=== PATIENT | male | born 1975 | race Caucasian/White ===

== ENCOUNTER → 2016-09-13 | Outpatient (CLI) | payer BC ==
[~2016-09-13] VITALS: Ht 185.4 cm; Wt 106.6 kg
[~2016-09-13] MED LIST: ADVIL100 M2 PO; ADVIL200 M3 PO; APAP500 PO; ASPIRIN325 PO; BACLOFEN 10MG T10 M1 PO; BUPRENORPHIN-N1 EACH SL; BUPRENORPHINE HC2 MG SL; BUTRANS1 EAC1 SUBQ; BUTRANS1 EAC1 TD; CARISOPRODOL 3350 MG PO; CYMBALTA60 MG PO; DICLOFENAC SOD50 MG PO; FENTANYL PA12 MCG/HR TP; FENTANYL PA25 MCG/HR TP; FLEXERIL; GLUCOSAMINE CH PO; GRALISE600 MG PO; HYDROCODON-ACE1 EAC7; HYDROCODON-ACE1 EAC7 PO; HYDROCODON-ACE1 EAC8 PO; HYDROCODONE-AP1 EA11 PO; HYDROCODONE-AP1 EAC6 PO; IBUPROFEN 200200 M1 PO; LIORESAL 10 MG10 MG PO; MEDROLDOSEPACK PO; MELOXICAM7.5 MG PO; NABUMETONE 500500 M1 PO; NAPROSYN500 MG PO; NEURONTIN600 MG PO; NORTRIPTYLINE H25 M3 PO; NORTRIPTYLINE H50 MG PO; NUCYNTA100 MG PO; NUCYNTA75 MG PO; OXCARBAZEPINE150 MG PO; OXYCODONE HCL 55 MG PO; OXYCONTIN10 M1 PO; PAMELOR25 MG PO; RELAFEN500 MG PO; ROBAXIN 750 MG750 M1; ROXICODONE5 M1 PO; ROXICODONE5 M2 PO; ROXICODONE5 MG PO; SUBOXONE 4 MG-1 EACH SL; TRAMADOL 50 MG50 MG PO
--- NOTE | ~2016-09-13 | HPC ---
[facility] [place] [address] PAIN MANAGEMENT CONSULTATION Name: DIAMANTE MAYER Room #: REG Marii Ivey.#: [id number] Admission: 09/13/16 Attend Phys: Kimani Britt DO Discharge: Date of : 75 Report #: [id number] THIS REPORT FOR: //name// CC: Adan Villela MD FAM physician/PCP Kimani Britt DATE OF SERVICE: 09/13/2016 REFERRING PHYSICIAN: Adan Villela MD. CHIEF COMPLAINT: Low back pain, lower extremity pain and paresthesias. HISTORY OF PRESENT ILLNESS: As you know, the patient is a very pleasant 41-year-old male, returning in followup visit indicating the changes to buprenorphine oral versus patch has been significant improvement in pain. The patient is able to sit for longer periods of time, standing for longer periods of time, and now is actively involved in a physical therapy program. He is excited about the effects of the medication, wishing to continue the medication. He denied any side effects of somnolence, decrease in mental acuity, disorientation, and confusion. He has requested refills for the next 3 months. ALLERGIES: No known drug allergies. CURRENT MEDICATIONS: Suboxone 4/1 mg 1 film twice a day. SOCIAL HISTORY: The patient continues to smoke, but he is trying to discontinue. He denies IV or illicit drug use. Denies any chronic alcohol abuse. He is working, not receiving workmen's compensation, unaccompanied today. PHYSICAL EXAMINATION: GENERAL: Well developed, well nourished, and well hydrated, 41-year-old male, appearing his stated age, placing pain score at no greater than 3/10. HEENT: Normocephalic and atraumatic. Pupils are equal, round, and reactive to light. Extraocular muscles are intact. Sclerae are nonicteric without injection. NEUROLOGIC: Cranial nerves 2-12 are grossly intact. Speech is fluent. The patient deemed an excellent historian. EXTREMITIES: Show no clubbing, no cyanosis, no edema. MUSCULOSKELETAL: Lower extremity strength remains equal and symmetrical at 5/5. Muscle bulk and tone equal and symmetrical, when comparing left lower extremity to right. Seated straight leg raising negative. Supine straight leg raising positive. Denita's test negative. Modified Gaenslen's is positive for axial low back pain. Lumbar provocation testing including extension, rotation, and lateral flexion, all intensify axial back pain with spasming of the musculature [address] [address] PAIN MANAGEMENT CONSULTATION Name: DIAMANTE MAYER Room #: REG CLI René#: [id number] Admission: 09/13/16 Attend Phys: Kimani Britt DO Discharge: Date of : 75 Report #: [id number] on the left. ASSESSMENT: 1. Symptomatic lumbar radiculopathy. 2. Displacement of lumbar intervertebral disk with radiculopathy. 3. Lumbosacral spondylosis with radiculopathy. 4. Failed lumbar spine surgery. 5. Chronic intractable pain. PLAN: 1. The patient returns today in followup visit indicating good benefit with the medication provided today for pain control. He is taking 4 mg of buprenorphine twice a day with good efficacy. He is extremely pleased with response to medication, wishing to continue the therapy. The patient and I did discuss the medication in its entirety, its appropriate use and how to change some of his exercise programs to maximize pain control. He is responsive to all suggestions. 2. The patient will continue physical therapy. We do recommend kinesiology class in his area that will help alleviate some of the muscle spasming he has been experiencing. He has plans to join kinesiology class starting next week. 3. The patient was provided a prescription of Suboxone 4 mg/1 mg dose, one piece of film twice a day, given #60 with releases of today, 4 weeks from today, 8 weeks from today, 3 months' worth of medication. 4. The patient to return to our clinic in approximately 3 months or earlier if changes need to be made to medications or adjustments need to be addressed. <ELECTRONICALLY SIGNED> By: Kimani Britt DO 09/14/16 0743 [id number] Kimani Britt DO /nt
[2016-09-13 08:02] VITALS: BP 145/72
== END | disposition home or self-care (01) ==
LOC: PAIN 07:03
DX: M51.16 Intervertebral disc disorders with radiculopathy, lumbar region (principal); M47.27 Other spondylosis with radiculopathy, lumbosacral region; G89.29 Other chronic pain; M96.1 Postlaminectomy syndrome, not elsewhere classified; F17.200 Nicotine dependence, unspecified, uncomplicated

== ENCOUNTER → 2016-11-29 | Outpatient (CLI) | payer BC ==
[~2016-11-29] VITALS: Ht 185.4 cm; Wt 103.0 kg
--- NOTE | ~2016-11-29 | HPC ---
[facility] [address] [place] [address] PAIN MANAGEMENT CONSULTATION Name: DIAMANTE MAYER Room #: REG DENYS Ivey.#: [id number] Admission: 11/29/16 Attend Phys: Kimani Britt DO Discharge: Date of : 75 Report #: [id number] THIS REPORT FOR: //name// CC: Adan Villela MD [facility] physician/PCP Kimani Britt DATE OF SERVICE: 11/29/2016 DATE OF SERVICE: 11/29/2016 CHIEF COMPLAINT: Low back pain, lower extremity pain and paresthesias. HISTORY OF PRESENT ILLNESS: As you know, the patient is a very pleasant 41-year-old male, who returns in followup visit stating a pain score 4/10. States his pain is numbness, sharp and aching in sensation, exacerbated with standing, changes in weather, sitting, walking, driving, improves with medication, lying down, hot baths. He returns today in followup visit stating that his medications are working quite beneficially. He is reporting that the buprenorphine "has given his life back." He feels this medication has been beneficial. He has reported this with the Butrans patch in the past and now is reporting it with the oral buprenorphine. He is very pleased with his response to buprenorphine and coverage apparently is now being provided, so he can maintain this therapy. He returns today requesting refill on medications. He is denying any side effects to the therapy. He has had no new injury or new trauma that may have led to progression of pain. ALLERGIES: No known drug allergies. CURRENT MEDICATIONS: Soma 350 mg p.r.n., aspirin 325 mg per day, buprenorphine 2 mg dose 1 tab p.o. b.i.d. p.r.n. pain. SOCIAL HISTORY: The patient continues to smoke, but is trying to discontinue. Denies IV or illicit drug use. Denies any chronic alcohol use. He is working, not receiving workmen's compensation, unaccompanied today. IMAGING: No new imaging available. PHYSICAL EXAMINATION: VITAL SIGNS: Blood pressure 130/79, pulse 87, respiratory rate 16, unlabored. The patient 98% on room air, height 6 feet 1 inches tall, weight 227 pounds, BMI calculated at 30. GENERAL: Well-developed, well-nourished, well-hydrated 41-year-old male appearing stated age. He is placing current pain score 4/10. HEENT: Normocephalic, atraumatic. Pupils equal, round, reactive to light. Extraocular muscles are intact. Sclerae nonicteric, without injection. No [address] [address] PAIN MANAGEMENT CONSULTATION Name: DIAMANTE MAYER Room #: REG [facility]#: [id number] Admission: 11/29/16 Attend Phys: Kimani Britt DO Discharge: Date of : 75 Report #: [id number] petechiae. Mucous membranes appear moist. EXTREMITIES: Show no clubbing, no cyanosis, no edema. MUSCULOSKELETAL: Lower extremity strength symmetrical 5/5. Muscle bulk and tone equal and symmetrical in lower extremities. Seated straight leg raising negative. Supine straight leg raising positive. ASSESSMENT: 1. Symptomatic lumbar radiculopathy. 2. Displacement of lumbar intervertebral disk with radiculopathy. 3. Lumbosacral spondylosis with radiculopathy. 4. Failed lumbar spine surgery. 5. Chronic intractable pain. PLAN: 1. The patient returns today in followup visit for continuation of medication therapy. As indicated in the HPI, patient is doing very well with medications. In fact, he thinks buprenorphine has "given his life back." The patient is denying any side effects of medication. Feels medications are working beneficially. Apparently coverage is now being offered through his third green party payer and he is able to take this medication consistently. He has done very well with buprenorphine in the past. He was started on Butrans patch which provided significant improvement, but unfortunately coverage was lacking. They are now covering his buprenorphine tablets and he feels these are working well and wishes to continue therapy. 2. The patient was provided a prescription of buprenorphine 2 mg dose 1 tab p.o. b.i.d., given #60 tablets with refills of today, 4 weeks from today, 8 weeks from today, 3 months' worth of medication. 3. We will see the patient back in followup visit in 3 months for medication management. I am pleased to see he is doing well. We will see him back if necessary for injection therapies, otherwise, 3 months for medications treatment. <ELECTRONICALLY SIGNED> By: Kimani Britt DO 12/06/16 1602 0744 [id number] Kimani Britt DO /nt
[2016-11-29 08:16] VITALS: BP 130/79
== END | disposition home or self-care (01) ==
LOC: PAIN 06:54
DX: M54.16 Radiculopathy, lumbar region (principal); M51.26 Other intervertebral disc displacement, lumbar region; M47.817 Spondylosis without myelopathy or radiculopathy, lumbosacral region; G89.29 Other chronic pain

== ENCOUNTER → 2017-03-01 | Outpatient (CLI) | payer BC ==
[~2017-03-01] VITALS: Ht 185.4 cm; Wt 104.8 kg
[2017-03-01 09:51] VITALS: BP 132/78
== END ==
LOC: PAIN 07:05
DX: M51.16 Intervertebral disc disorders with radiculopathy, lumbar region (principal); M54.5 Low back pain; Z79.899 Other long term (current) drug therapy

== ENCOUNTER → 2017-06-06 | Outpatient (CLI) | payer BC ==
[~2017-06-06] VITALS: Ht 185.4 cm; Wt 106.3 kg
--- NOTE | ~2017-06-06 | HPC ---
[facility] [address] [place] [address] PAIN MANAGEMENT CONSULTATION Name: DIAMANTE MAYER Room #: REG DENYS Marija.#: [id number] Admission: 06/06/17 Attend Phys: Kimani Britt DO Discharge: Date of : 75 Report #: [id number] THIS REPORT FOR: //name// CC: Adan Villela MD [facility] physician/PCP Kimani Britt DATE OF SERVICE: 06/06/2017 REFERRING PHYSICIAN: Adan Villela M.D. CHIEF COMPLAINT: Low back pain, lower extremity pain and paresthesias. HISTORY OF PRESENT ILLNESS: As you know, the patient is a very pleasant 42-year-old male returning in followup visit requesting refill on medications. He is placing pain score 4/10, states pain is exacerbated with standing, weather changes, sitting, walking, driving, in certain activities, improves with medications, lying down, hot baths. The patient states that the medications as presently provided give the patient good analgesic benefit. He states he has many more good days than he does have bad. He has been having increasing pain level of late as he has been refinishing his bathroom and this is leading to some increased symptoms of back pain, but otherwise he is doing very well. He has returned today in followup visit requesting refill on medications at current dosing. He is denying any side effects to therapy including somnolence, decreased mental acuity, disorientation and confusion. ALLERGIES: No known drug allergies. CURRENT MEDICATIONS: Soma 350 mg twice day, buprenorphine 2 mg 4 times a day, aspirin 325 mg once a day. SOCIAL HISTORY: The patient continues to smoke, but is trying to discontinue. Denies IV or illicit drug use. Denies any chronic alcohol use. He is working, not receiving workmen's compensation, unaccompanied today. IMAGING: No imaging available. PHYSICAL EXAMINATION: VITAL SIGNS: Blood pressure 125/82, pulse is 80, respiratory rate 16, unlabored, patient is 97% on room air. Height 6 feet 1 inch tall, weight 234.4 pounds, BMI calculated 30.9. GENERAL: Well-developed, well-nourished, well-hydrated 42-year-old male appearing his stated age. He is in no acute distress, awake, alert and oriented x 3. Current pain score is 4/10. HEENT: Normocephalic, atraumatic. Pupils equal, round, reactive to light. Extraocular muscles are intact. Sclerae nonicteric, without injection. [facility] [address] [place] [address] PAIN MANAGEMENT CONSULTATION Name: DIAMANTE MAYER Room #: REG [facility]#: [id number] Admission: 06/06/17 Attend Phys: Kimani Britt DO Discharge: Date of : 75 Report #: [id number] EXTREMITIES: Show no clubbing, no cyanosis, no edema. MUSCULOSKELETAL: Seated straight leg raising negative. Supine straight leg raising mildly positive. Denita's test is negative. Modified Gaenslen's positive for axial low back pain. Ankle clonus negative. Babinski is negative. Muscle bulk and tone symmetrical. ASSESSMENT: 1. Symptomatic lumbar radiculopathy. 2. Displacement of lumbar intervertebral disk with radiculopathy. 3. Lumbosacral spondylosis with radiculopathy. 4. Failed lumbar spine surgery. 5. Chronic intractable pain. PLAN: 1. The patient has returned today in followup visit for continuation of medication therapy. The patient feels medications are working well for pain control. The patient denies any side effects to the medication including somnolence, decrease in mental acuity, disorientation, confusion. He feels medications are beneficial and are working well. He states that with the medication, he is able to go about all activities of daily living without significant pain interference. 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 He returns today requesting refill on medication. 2. The patient was provided a prescription of Soma 350 mg dose 1 tab p.o. b.i.d. p.r.n. muscle spasms, #62 refills, 3 months' worth of medication. 3. The patient was provided a prescription of buprenorphine 2 mg dose 1 tab 4 times a day as needed for pain control given the patient #120, releases of today, 4 weeks from today, 8 weeks from today, 3 months' worth of medication. 4. We will see the patient back in followup visit in 3 months for ongoing medical therapy and to make any adjustments in treatment depending on efficacy. He may return if he wishes to undergo interventional treatments at his earliest convenience. <ELECTRONICALLY SIGNED> By: Kimani Britt DO 06/07/17 0807 0916 1002 Kimani Britt DO /nt
[2017-06-06 08:10] VITALS: BP 125/82
== END | disposition home or self-care (01) ==
LOC: PAIN 07:13
DX: M51.16 Intervertebral disc disorders with radiculopathy, lumbar region (principal); M47.27 Other spondylosis with radiculopathy, lumbosacral region; Z98.890 Other specified postprocedural states; G89.29 Other chronic pain; Z68.30 Body mass index [BMI] 30.0-30.9, adult; Z79.899 Other long term (current) drug therapy; F17.210 Nicotine dependence, cigarettes, uncomplicated

== ENCOUNTER → 2017-10-10 | Outpatient (CLI) | payer BC ==
[~2017-10-10] VITALS: Ht 185.4 cm; Wt 105.8 kg
--- NOTE | ~2017-10-10 | HPC ---
[facility] [place] [address] PAIN MANAGEMENT CONSULTATION Name: DIAMANTE MAYER Room #: REG DENYS Ivey.#: [id number] Admission: 10/10/17 Attend Phys: Kimani Britt DO Discharge: Date of : 75 Report #: [id number] THIS REPORT FOR: //name// CC: Adan Villela MD [facility] physician/PCP Kimani Britt DATE OF SERVICE: 10/10/2017 REFERRING PHYSICIAN: Adan Villela MD. CHIEF COMPLAINT: Low back pain, lower extremity pain and paresthesias. HISTORY OF PRESENT ILLNESS: As you know, the patient is a very pleasant 42-year-old male, returning in followup visit for medication management. The patient indicates pain level today of around 1/10. States the buprenorphine medication is working well for pain control. The patient does voice concern about the cost of the buprenorphine and has moved from $30 a month to over $200 a month. He has been slowly reducing his dose of medication due to the excessive cost. He is now taking three buprenorphine tablets a day. He returns today for refill of medication, and he now requests referral back to Neurosurgery to discuss treatment options. As you are aware, the patient unfortunately did not do well with a spinal cord stimulator trial, this leaves us with medication management and surgical options. He has requested refill of medications today and a referral back to Neurosurgery. ALLERGIES: No known drug allergies. CURRENT MEDICATIONS: Buprenorphine 2 mg dose 3 times a day, aspirin 325 mg per day, Soma 350 mg twice a day. SOCIAL HISTORY: The patient continues to smoke. Denies IV or illicit drug use. Denies any chronic alcohol use. He is working, not receiving workmen's compensation, unaccompanied today. IMAGING: No new imaging available. PQRS: The patient is on opioid contract with [facility]. We have renewed the opioid contract today. He has a low risk for opioid dependency. His functional assessment shows pain impact score 46/70. He is not hypertensive and not being treated for such. He is not on blood thinners. He is not a fall risk, has not had a fall in the past 3 months. He has no history of osteoarthritis or rheumatoid arthritis. PHYSICAL EXAMINATION: VITAL SIGNS: Blood pressure 116/71, pulse is 20. Respiratory rate 16, [facility] [address] [place] [address] PAIN MANAGEMENT CONSULTATION Name: DIAMANTE MAYER Room #: REG [facility].#: [id number] Admission: 10/10/17 Attend Phys: Kimani Britt DO Discharge: Date of : 75 Report #: [id number] unlabored. The patient is 98% on room air. Height 6 feet 1 inch tall, weight 233.2 pounds, BMI calculated 30.8. GENERAL: Well-developed, well-nourished, well-hydrated 42-year-old male, appearing stated age, placing pain score today 1/10. HEENT: Normocephalic, atraumatic. Pupils equal, round, reactive to light. Extraocular muscles are intact. Sclerae nonicteric, without injection. EXTREMITIES: Show no clubbing, no cyanosis, no edema. MUSCULOSKELETAL: Seated straight leg raise negative, supine straight leg raising mildly positive. Denita test negative. Modified Gaenslen's positive for axial low back pain. Ankle clonus negative. Babinski is negative. Muscle bulk and tone equal and symmetrical in lower extremities, intact to light touch from L1 through S2 dermatomes. ASSESSMENT: 1. Symptomatic lumbar radiculopathy. 2. Displacement of a lumbar intervertebral disk with radiculopathy. 3. Lumbosacral spondylosis with radiculopathy. 4. Failed lumbar spine surgery. 5. Chronic intractable pain. PLAN: 1. The patient returns today in followup visit where we have discussed ongoing issues with low back pain, lower extremity pain and paresthesias. The patient continues to experience lumbar radicular symptoms to a level that requires chronic opioid therapy. We have tried the patient on multiple neuropathic pain medications, but failures were noted with each of the medications due to either side effects, he could not tolerate or lack of efficacy. We have tried the patient on virtually all neuropathic pain medications including Lyrica, nortriptyline, amitriptyline. We have tried the patient on gabapentin, even some of the sodium channel blockers, all of which have led to no improvement in symptoms. We have stabilized the patient on a dose of buprenorphine, but now the patient is having some issues with low testosterone levels, and this is potentially due to medication therapy. He has started AndroGel, which is being monitored by his PCP. Given the constellation of issues that have occurred with medication management, the lack of significant and prolonged improvement over a long period of time post-surgery, the patient is requesting an evaluation by his neurosurgeon. I have agreed that the patient should have at least a return visit to discuss with the surgeons who performed the surgery, whether or not any other interventional treatments might be necessary. As indicated in the history of present illness, the patient has undergone spinal cord stimulator trial. Unfortunately, this did not provide the patient with any benefit over about 20%, and we chose not to move forward the device as this would not provide prolonged improvement. 2. We have agreed to provide the patient with buprenorphine 2 mg dose 1 tab p.o. t.i.d. I have given the patient #90 tablets, releases of today, 4 weeks from today, 8 weeks from today. [facility] [address] [place] [address] PAIN MANAGEMENT CONSULTATION Name: MORENOMARCNAYANA Room #: REG [facility] M.R.#: [id number] Admission: 10/10/17 Attend Phys: Kimani Britt DO Discharge: Date of : 75 Report #: [id number] 3. We have taken the liberty of having the patient re-sign an opioid contract with [facility]. This contract was provided so that the patient to review on his own time. He signed the contract in good tala, as did myself, and this was witnessed by a nurse who also countersigned. 4. The patient will contact our clinic once he has had a chance to be seen by Neurosurgery to advise of potential options for surgery or other treatment suggestions. <ELECTRONICALLY SIGNED> By: Kimani Britt DO 10/18/17 0715 0750 1341 Kimani Britt DO /nt
[2017-10-10 09:04] VITALS: BP 116/71
== END ==
LOC: PAIN 06:55
DX: M54.16 Radiculopathy, lumbar region (principal); M47.897 Other spondylosis, lumbosacral region

== ENCOUNTER → 2018-07-03 | Outpatient (CLI) | payer BC ==
[~2018-07-03] VITALS: Ht 185.4 cm; Wt 104.0 kg
--- NOTE | ~2018-07-03 | HPC ---
[facility] [place] [address] PAIN MANAGEMENT CONSULTATION Name: DIAMANTE MAYER Room #: REG [facility]..#: [id number] Admission: 07/03/18 Attend Phys: Morenita Charles Discharge: Date of : 75 Report #: [id number] THIS REPORT FOR: //name// CC: Morenita [facility] physician/PCP DATE OF SERVICE: 07/03/2018 CHIEF COMPLAINT: Right upper buttock pain, left lower extremity pain. HISTORY OF PRESENT ILLNESS: The patient complains of pain 5/10 today. States it is numb and sharp; worse with the weather, changing, sitting and walking. He tells me his average is usually 2-3, but because of those weather changes lately it has increased slightly. He tells me normally his medications help quite significantly as well as lying down in a hot bath. He tells me today that he did start a new supplement called PEA that is sold over the internet, that had good studies as a supplement, that he is trying to see if it helps his pain decrease too. The patient states he has just started that medication, but hopeful that it will help him significantly. He tells me that he rarely uses his Soma for his muscle spasms, but just continues his buprenorphine 2 mg twice a day. He is here today requesting a refill of that medication. ALLERGIES: No known drug allergies. CURRENT MEDICATIONS: Soma 1 tablet twice a day as needed, buprenorphine 2 mg sublingual twice a day and then this new supplement PEA. PQRS: 1. History of osteoarthritis in his lower back and extremities. He does not have any rheumatoid arthritis. 2. Height is 6 feet 1 inch, weight 229. BMI is 30.2. 3. Vital signs: Blood pressure 128/74, pulse is 86, respirations 16, oxygen sat is 98%. 4. Pain score 5/10. 5. Fall risk. Denies dizziness. Does not need help walking or standing and has not fallen in the last 3 months. 6. No blood thinners. 7. Denies hypertension. 8. Opioid therapy greater than 6 weeks and a signed opioid contract is on the chart. 9. Risk assessment tool is low. His functional assessment is 46/70. 10. Recreational drug use, he does not use any. He smokes some cigarettes and uses alcohol 1-2 times per week. We did check [place] K-TRACS, they are appropriate for this patient [address] [address] PAIN MANAGEMENT CONSULTATION Name: DIAMANTE MAYER Room #: REG [facility]#: [id number] Admission: 07/03/18 Attend Phys: Morenita Charles Discharge: Date of : 75 Report #: [id number] and we will check urine drug screen on his next visit, since the last one was longer ago, so that we have one on a yearly basis on our chart. PHYSICAL EXAMINATION: GENERAL: Well-developed, well-nourished, well-hydrated 43-year-old gentleman who appears his stated age. Placing his pain score today at 5 and averages usually 2-3. HEENT: Normocephalic, atraumatic. Pupils are equal, round and reactive to light. Extraocular muscles are intact. NEUROLOGIC: Cranial nerve seems to be intact. Speech is fluent. EXTREMITIES: No clubbing, no cyanosis, no edema. MUSCULOSKELETAL: The patient has tenderness over his lower back, left SI area. Able to rise from standing to sitting without difficulty. Strength appears to be 5/5 in all extremities. DIAGNOSTIC IMPRESSION: 1. Right sacroiliac joint dysfunction. 2. Systematic lumbar radiculopathy. 3. Lumbosacral spondylosis with radiculopathy. 4. Failed lumbar spine surgery. 5. Chronic intractable back pain. We reviewed the fact that opiate medications are being used to provide analgesia adequate to support activities of daily living, not attempting to achieve a specific pain score on the 0-10 Visual Analog Scale. The current opiate medications are providing sufficient analgesia to allow the patient to participate in activities of daily living. The patient is not exhibiting any aberrant behavior suggestive of drug diversion. The patient is not having any adverse reactions to medications. The patient is not suffering from daytime somnolence or mental acuity changes. The patient is managing opiate-induced constipation with appropriate ijgn-myp-lmuhfpx agents and dietary considerations. The patient was counseled on concern for caution with operating a motor vehicle while using opiate medications. A physical exam was performed and the patient's functional status was evaluated. All patients with back pain were advised against the bed rest greater than 4 days and were advised to return to normal activities. Pain score assessment was noted and the treatment plan was reviewed with the patient. All current medications, both prescribed and OTC were reviewed and reconciled on the electronic medical record. Tobacco screening was accomplished and smoking cessation was advised when indicated. BMI was noted and diet/exercise modification was recommended for all patients following outside normal parameters. I reviewed with the patient today their responsibilities to safeguard prescription medications, reviewed their responsibility to utilize medications [address] [address] PAIN MANAGEMENT CONSULTATION Name: DIAMANTE MAYER Room #: REG [facility]#: [id number] Admission: 07/03/18 Attend Phys: Morenita Charles Discharge: Date of : 75 Report #: [id number] only as prescribed by the physician. They are to seek and receive pain medications only from 1 physician group ( [facility]). They are to use 1 pharmacy and keep the clinic informed if they change pharmacies. Their responsibilities include making followup visits in a timely fashion and to avoid abrupt discontinuation of medication usage. Their responsibilities further include bringing their medications (bottles from the pharmacy with residual pills) to the visit for possible confirmation of pill counts and the patient understands it is their responsibility to submit to random drug screens to ensure both that the medications prescribed are present, and that no other controlled substances are present. All prescriptions provided today were generated electronically. PLAN: 1. The patient seen today for followup visit for his medication management. He tells me that his pain has been controlled with his buprenorphine averaging usually at 2-3 score, today is slightly increased, thinks it is due to the weather, is here for a refill of his medication. He denies constipation. Sometimes he states he does have some daytime sleepiness. He thinks this is attributed not to medications, but due to that he works at home and can get kind of lazy, but does try to move about the house to try and not sleep. He tells me he safeguards his medicines. 2. The patient is taking a supplement, PEA. He thinks that will be helpful in controlling some of his pain also. The patient tells me that he is taking his Soma muscle relaxer 1-2 times a month and no script is needed for this today. 3. Prescriptions today for buprenorphine 2 mg 1 tablet twice a day, quantity 60 to be released today, 4-week and 8-week. The patient will return in 3 months if not sooner for a followup in the pain clinic. The patient was seen in collaboration today with Dr. Kimani Britt. <ELECTRONICALLY SIGNED> By: Morenita Charles 07/04/18 0711 [id number] Morenita Charles /nt
[2018-07-03 09:08] VITALS: BP 128/74
== END ==
LOC: PAIN 06:34
DX: M47.27 Other spondylosis with radiculopathy, lumbosacral region (principal); M53.3 Sacrococcygeal disorders, not elsewhere classified; G89.4 Chronic pain syndrome; Z79.899 Other long term (current) drug therapy

== ENCOUNTER → 2018-10-16 | Outpatient (CLI) | payer BC ==
[~2018-10-16] VITALS: Ht 185.4 cm; Wt 110.5 kg
[~2018-10-16] MED LIST changes: +PEA
[2018-10-16 08:26] VITALS: BP 129/85
--- NOTE | 2018-10-16 08:37 | NUR ---
Pain Clinic Assessment: 1. History of Osteoarthritis: Not Applicable History of Rheumatoid Arthritis: Not Applicable Not Applicable Not Applicable 2. Height: 6 ft. 1 in. 185.4 cm. Weight: 243.6 lb. oz. 110.496 kg. Patient's BMI: 32.1 3. Vital Signs: BP: 129/85 Pulse: 79 Resp: 16 Temp: 02 Sat: 100 ECG Mon: 4. Pain Intensity: 2 5. Fall Risk: Dizziness: N Needs help standing or walking: N Fallen in the last 3 months: N Fall risk comments: 6. Patient on Blood Thinner: None 7. History of Hypertension: N 8. Opioid Therapy greater than 6 weeks: Y Opiate Contract Signed: 10/10/17 9. Risk Assessment Tool Provided: Jonathan/russell 10. Functional Assessment Tool: 11. Recreational Drug Use: Never Drug Type: Tobacco Use: Former Smoker Tobacco Type: Amount or Packs/day: How Many Years: Alcohol Use: Yes Frequency: Weekly Quant: WEEK END
--- NOTE | 2018-10-23 07:34 | HPC ---
[facility] [address] [place] [address] PAIN MANAGEMENT CONSULTATION Name: DIAMANTE MAYER Room #: REG [facility] M.R.#: [id number] Admission: 10/16/18 ������������������ Attend Phys: Kimani Britt DO Discharge: ������������������ Date of : 75 Report #: [id number] THIS REPORT FOR: //name// CC: Adan Villela MD [facility] physician/PCP Kimani Britt DATE OF SERVICE: 10/16/2018 CHIEF COMPLAINT: Low back pain, left lower extremity pain and paresthesias. HISTORY OF PRESENT ILLNESS: As you know, the patient is a very pleasant 43-year-old male who returns today in followup visit, requesting refill of medications to address chronic lumbar radicular symptoms involving low back and left lower extremity. The patient also reports new onset of shocking sensations that he feels that runs down both legs as well as climbs from his low back towards his mid back. He states he has suffered no injury, no trauma or any changes in medical history since our last visit that may have precipitated such findings. He returns today, stating that he is taking PEA, an dehx-dky-kuofdiy supplementation he receives via the Internet, with improvement in the shocking sensation. He returns, requesting refill of his buprenorphine, stating no side effects to this therapy. ALLERGIES: No known drug allergies. CURRENT MEDICATIONS: PEA supplement 1 tab per day, carisoprodol 350 mg t.i.d. p.r.n., buprenorphine 2 mg sublingual twice a day p.r.n. SOCIAL HISTORY: The patient is a nonsmoker, he quit in August. Denies IV or illicit drug use. Denies any chronic alcohol use. He is employed, working, not receiving workmen's compensation, unaccompanied today. IMAGING: No new imaging available. PHYSICAL EXAMINATION: VITAL SIGNS: Blood pressure 129/85, pulse 79, respiratory rate 16 and unlabored. The patient is 100% on room air, height 6 feet 1 inch tall, weight 243.6 pounds, BMI calculated 32.1. GENERAL: Well-developed, well-nourished, well-hydrated 43-year-old male appearing stated age, placing current pain score 2/10. HEENT: Normocephalic, atraumatic. Pupils equal, round, reactive to light. Extraocular muscles are intact. EXTREMITIES: Show no clubbing, no cyanosis, no edema. MUSCULOSKELETAL: The patient has tenderness to palpation over the lower lumbar spine, no spinous process tenderness. Well-healed surgical scar. Seated straight leg raising negative. Supine straight leg raising appears positive, [address] [address] PAIN MANAGEMENT CONSULTATION Name: DIAMANTE MAYER Room #: REG [facility].#: [id number] Admission: 10/16/18 ������������������ Attend Phys: Kimani Britt DO Discharge: ������������������ Date of : 75 Report #: [id number] mildly on the left at about 80 degree angle. Ankle clonus negative. Babinski is negative. I was unable to elicit "shocking sensation." ASSESSMENT: 1. Symptomatic lumbar radiculopathy. 2. Lumbosacral spondylosis with radiculopathy. 3. Failed lumbar spine surgery. 4. Sacroiliac joint dysfunction. 5. Chronic intractable pain. PLAN: 1. The patient has returned today in followup visit, requesting refill of his buprenorphine therapy. He states the medication in combination with stretching exercises at home and distraction techniques have worked well for pain control. He is requesting refill on the medication. He denies side effects of somnolence, decreased mental acuity, disorientation, confusion, mental slowing or constipation that cannot be resolved with euyw-bti-dsmdatf medication with this therapy. 2. The patient was provided prescription of buprenorphine 2 mg dose 1 tab p.o. t.i.d., #60, releasing today, 4 weeks from today, 8 weeks from today, 3 months' worth of medication. 3. We reviewed the fact that opiate medications are being used to provide analgesia adequate to support activities of daily living, not attempting to achieve a specific pain score on the 0-10 Visual Analog Scale. The current opiate medications are providing sufficient analgesia to allow the patient to participate in activities of daily living. The patient is not exhibiting any aberrant behavior suggestive of drug diversion. The patient is not having any adverse reactions to medications. The patient is not suffering from daytime somnolence or mental acuity changes. The patient is managing opiate-induced constipation with appropriate iljp-cbz-cmuxuun agents and dietary considerations. The patient was counseled on concern for caution with operating a motor vehicle while using opiate medications. A physical exam was performed and the patient's functional status was evaluated. All patients with back pain were advised against the bed rest greater than 4 days and were advised to return to normal activities. Pain score assessment was noted and the treatment plan was reviewed with the patient. All current medications, both prescribed and OTC were reviewed and reconciled on the electronic medical record. Tobacco screening was accomplished and smoking cessation was advised when indicated. BMI was noted and diet/exercise modification was recommended for all patients following outside normal parameters. I reviewed with the patient today their responsibilities to safeguard prescription medications, reviewed their responsibility to utilize medications only as prescribed by the physician. They are to seek and receive pain [address] [address] PAIN MANAGEMENT CONSULTATION Name: DIAMANTE MAYER Room #: REG [facility].#: [id number] Admission: 10/16/18 ������������������ Attend Phys: Kimani Britt DO Discharge: ������������������ Date of : 75 Report #: [id number] medications only from 1 physician group ( [facility]). They are to use 1 pharmacy and keep the clinic informed if they change pharmacies. Their responsibilities include making followup visits in a timely fashion and to avoid abrupt discontinuation of medication usage. Their responsibilities further include bringing their medications (bottles from the pharmacy with residual pills) to the visit for possible confirmation of pill counts and the patient understands it is their responsibility to submit to random drug screens to ensure both that the medications prescribed are present, and that no other controlled substances are present. All prescriptions provided today were generated electronically. 4. The patient is describing "shocking sensation" that begins in the low back, radiates down the legs bilaterally and then radiates up back to the mid back, appears to be related to neuropathy. He states that his PEA yvvv-ovv-gmfxoyh supplementation he is receiving has improved this symptom. I recommend he continue the PEA at this time. If this continues to be problematic, I would recommend Neurology consultation to discuss this further. I do not have a clear etiology for the patient's symptoms, but it does sound as if he is receiving some type of neurologic discharge, though I am unable to determine the source of this based on conversation today, distribution of symptoms and his findings from recent MRIs. Further evaluation if necessary would be required as a referral to Neurology would be appropriate. 5. We applaud the patient for discontinuing smoking. This should improve his overall condition and reduce his possible propagation of pain noted with chronic tobacco use and nicotine use. We applaud the patient for discontinuing this activity and we are here to support him in any way. 6. We will see the patient back in followup visit in 3 months for medication management, earlier if he wishes to discuss further his new "shocking." ��������������������������������������������� <ELECTRONICALLY SIGNED> ���������������������������������������� By: Kimani Britt DO ��������������������������������������������� 10/23/18 0734 [id number] Kimani Britt DO /nt
== END ==
LOC: PAIN 06:45
DX: M47.27 Other spondylosis with radiculopathy, lumbosacral region (principal); G89.29 Other chronic pain

== ENCOUNTER → 2019-02-13 | Outpatient (CLI) | payer BC ==
[~2019-02-13] VITALS: Ht 185.4 cm; Wt 112.9 kg
[2019-02-13 08:21] VITALS: BP 136/76
--- NOTE | 2019-02-13 08:32 | NUR ---
Pain Clinic Assessment: 1. History of Osteoarthritis: Not Applicable History of Rheumatoid Arthritis: Not Applicable Not Applicable Not Applicable 2. Height: 6 ft. 1 in. 185.4 cm. Weight: 248.8 lb. oz. 112.855 kg. Patient's BMI: 32.8 3. Vital Signs: BP: 136/76 Pulse: 80 Resp: 14 Temp: 02 Sat: 97 ECG Mon: 4. Pain Intensity: 3 5. Fall Risk: Dizziness: N Needs help standing or walking: N Fallen in the last 3 months: N Fall risk comments: 6. Patient on Blood Thinner: None 7. History of Hypertension: N 8. Opioid Therapy greater than 6 weeks: Y Opiate Contract Signed: 10/10/17 9. Risk Assessment Tool Provided: 1/russell 10. Functional Assessment Tool: 11. Recreational Drug Use: Never Drug Type: Tobacco Use: Former Smoker Tobacco Type: Amount or Packs/day: How Many Years: Alcohol Use: Yes Frequency: Weekly Quant: 2
--- NOTE | 2019-02-13 08:32 | NUR ---
Document wound assessment on appropriate Wound Pressure, Monitor intervention!
--- NOTE | 2019-02-26 13:03 | HPC ---
[facility] [place] [address] PAIN MANAGEMENT CONSULTATION Name: MEDARDO MAYER Room #: REG [facility] M.R.#: [id number] Admission: 02/13/19 ������������������ Attend Phys: Kimani Britt DO Discharge: ������������������ Date of : 75 Report #: [id number] THIS REPORT FOR: //name// CC: MEDARDO SANCHEZ [facility] physician/PCP Kimani Britt DATE OF SERVICE: 02/13/2019 REFERRING PHYSICIAN: Medardo Sanchez MD CHIEF COMPLAINT: Low back pain, left lower extremity pain and paresthesias. HISTORY OF PRESENT ILLNESS: As you know, the patient is a 43-year-old male, returning in followup visit requesting refill on medications. He indicates that the buprenorphine is working well for pain control. He returns in followup visit for refill of therapy. He has started a concerted effort at exercise, which has begun to improve overall pain. He states the combination of treatment is providing good benefit, reducing his pain to 3/10. He states pain when present is numbness, tingling, burning and sharp. Describes pain exacerbated with reaching out with his arms or carrying objects, improves with medication, lying down and hot baths as well as medications. He returns today requesting refills of therapy. ALLERGIES: No known drug allergies. CURRENT MEDICATIONS: 1. Buprenorphine 2 mg every 12 hours p.r.n. pain. 2. Carisoprodol 350 mg b.i.d. p.r.n. 3. PEA 1 tab per day. SOCIAL HISTORY: The patient reports he is a nonsmoker, he quit in August. Denies IV or illicit drug use. Denies any chronic alcohol use. He is working, not receiving workmen's compensation, unaccompanied today. IMAGING: No new imaging available. PHYSICAL EXAMINATION: VITAL SIGNS: Blood pressure 136/76, pulse 80, respiratory rate 14 and unlabored. The patient is 97% on room air, height 6 feet 1 inches tall, weight 248.8 pounds, BMI calculated 32.8. GENERAL: Well-developed, well-nourished, well-hydrated 43-year-old male appearing stated age, pain is rated today at 3/10. HEENT: Normocephalic, atraumatic. Pupils are equal, round, and reactive to light. EXTREMITIES: Show no clubbing, no cyanosis, no edema. [facility] [address] [place] [address] PAIN MANAGEMENT CONSULTATION Name: MEDARDO MAEYR [id number] Admission: 02/13/19 ������������������ Attend Phys: Kimani Britt DO Discharge: ������������������ Date of : 75 Report #: [id number] MUSCULOSKELETAL: Lower extremity strength is symmetrical 5/5, intact to light touch from L1 through S2 dermatomes. Muscle bulk and tone equal and symmetrical in comparing left lower extremity to right. Seated straight leg raising is negative. Supine straight leg raising is mildly positive left. ASSESSMENT: 1. Symptomatic lumbar radiculopathy. 2. Lumbosacral spondylosis with radiculopathy. 3. Failed lumbar spine surgery. 4. Chronic intractable pain. PLAN: 1. The patient returns today in followup visit reporting a combination of medications and exercise program have improved overall pain. He is now placing pain at around 3/10. He states he wishes to continue therapy and continue his exercise program in hopes of ultimately weaning off opioid medications in the very near future. He has requested refills to be provided today. He is denying side effects with their use. 2. We reviewed the fact that opiate medications are being used to provide analgesia adequate to support activities of daily living, not attempting to achieve a specific pain score on the 0-10 Visual Analog Scale. The current opiate medications are providing sufficient analgesia to allow the patient to participate in activities of daily living. The patient is not exhibiting any aberrant behavior suggestive of drug diversion. The patient is not having any adverse reactions to medications. The patient is not suffering from daytime somnolence or mental acuity changes. The patient is managing opiate-induced constipation with appropriate ktpy-yzp-enwuxga agents and dietary considerations. The patient was counseled on concern for caution with operating a motor vehicle while using opiate medications. A physical exam was performed and the patient's functional status was evaluated. All patients with back pain were advised against the bed rest greater than 4 days and were advised to return to normal activities. Pain score assessment was noted and the treatment plan was reviewed with the patient. All current medications, both prescribed and OTC were reviewed and reconciled on the electronic medical record. Tobacco screening was accomplished and smoking cessation was advised when indicated. BMI was noted and diet/exercise modification was recommended for all patients following outside normal parameters. I reviewed with the patient today their responsibilities to safeguard prescription medications, reviewed their responsibility to utilize medications only as prescribed by the physician. They are to seek and receive pain medications only from 1 physician group ([facility]). They are to use 1 pharmacy and keep the clinic informed if they change pharmacies. Their responsibilities include making followup visits in a timely fashion and to avoid abrupt discontinuation of medication usage. Their responsibilities further include bringing their medications (bottles from the pharmacy with residual [address] [address] PAIN MANAGEMENT CONSULTATION Name: MEDARDO MAYER Room #: REG [facility] [place]#: [id number] Admission: 02/13/19 ������������������ Attend Phys: Kimani Britt DO Discharge: ������������������ Date of : 75 Report #: [id number] pills) to the visit for possible confirmation of pill counts and the patient understands it is their responsibility to submit to random drug screens to ensure both that the medications prescribed are present, and that no other controlled substances are present. All prescriptions provided today were generated electronically. 3. We have reviewed the patient's PDMP. We have noted no aberrant entries in the review of the [facility] PDMP programming. He appears to be utilizing his medication appropriately. 4. The patient was provided prescription of buprenorphine 2 mg sublingual films. He was given releases of today, 4 weeks from today and 8 weeks from today, 3 months' worth of medication. He is given #60 of the films, advised to take as directed. 5. The patient was provided prescription of carisoprodol 350 mg dose 1 tab p.o. b.i.d., #60 with 2 refills, 3 months' worth of medication. The patient was advised to utilize this medication only when pain is present with muscle spasming. 6. We will see the patient back in followup visit in 3 months. We did discuss the possibly of weaning the medications over the next 3 months and he is going to make these adjustments if possible. We are hopeful the patient will be reduced to even further by the next visit. ��������������������������������������������� <ELECTRONICALLY SIGNED> ���������������������������������������� By: Kimani Britt DO ��������������������������������������������� 02/26/19 1303 0814 [id number] Kimani Britt DO /bob
== END ==
LOC: PAIN 06:46
DX: M47.817 Spondylosis without myelopathy or radiculopathy, lumbosacral region (principal); G89.4 Chronic pain syndrome; Z79.899 Other long term (current) drug therapy

== ENCOUNTER → 2019-05-29 | Outpatient (CLI) | payer BC ==
[~2019-05-29] VITALS: Ht 185.4 cm; Wt 114.8 kg
[~2019-05-29] MED LIST changes: +SOMA350 MG PO
[2019-05-29 12:32] VITALS: BP 153/91
--- NOTE | 2019-05-29 12:40 | NUR ---
Pain Clinic Assessment: 1. History of Osteoarthritis: SPINE History of Rheumatoid Arthritis: NONE 2. Height: 6 ft. 1 in. 185.4 cm. Weight: 253.0 lb. oz. 114.760 kg. Patient's BMI: 33.4 3. Vital Signs: BP: 153/91 Pulse: 75 Resp: 14 Temp: 02 Sat: 97 ECG Mon: 4. Pain Intensity: 2-3 5. Fall Risk: Dizziness: N Needs help standing or walking: N Fallen in the last 3 months: N Fall risk comments: 6. Patient on Blood Thinner: None 7. History of Hypertension: N 8. Opioid Therapy greater than 6 weeks: Y Opiate Contract Signed: 10/10/17 9. Risk Assessment Tool Provided: 1/low 10. Functional Assessment Tool: 11. Recreational Drug Use: Never Drug Type: Tobacco Use: Former Smoker Tobacco Type: Amount or Packs/day: How Many Years: Alcohol Use: Yes Frequency: Weekly Quant:
--- NOTE | 2019-05-30 14:13 | HPC ---
[facility] [address] [address] PAIN MANAGEMENT CONSULTATION Name: DIAMANTE MAYER Room #: REG [facility] M.R.#: [id number] Admission: 05/29/19 Attend Phys: Morenita Charles Discharge: Date of : 75 Report #: [id number] THIS REPORT FOR: //name// CC: Morenita [facility] physician/PCP Kimani Britt DO DATE OF SERVICE: 05/29/2019 CHIEF COMPLAINT: Low back pain, left lower extremity pain and paresthesias. HISTORY OF PRESENT ILLNESS: This is a pleasant 43-year-old gentleman who returns to the pain clinic today for refill of his buprenorphine that he takes for his ongoing low back pain. He finds it very beneficial. Most days, he averages a pain score of 2-3, though today is slightly elevated at 5/10 today. He believes this is partly because of a recent trip for business where he was sitting a lot and when he came back, he has had some increased low back pain. Usually, he has no problems with constipation, but again because he was traveling, he had some difficulties. He does not relate this to his medications. He really thinks it has resulted in his travel and change of diet and activity. He does not take Soma for muscle spasms, very often and has not needed that medication today. He is just needing his buprenorphine, which he takes 1-2 tablets a day as needed for pain. ALLERGIES: No known drug allergies. CURRENT LIST OF MEDICINES: Buprenorphine 2 mg p.r.n. PQRS: 1. 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 Denies any rheumatoid arthritis. 2. Height is 6 feet 1 inch, weight is 253, BMI is 33. 3. Vital signs: Blood pressure 153/91, pulse is 75, respirations 14, oxygen sat is 97. 4. Pain score 2-3. 5. Denies dizziness, does not need help walking or standing, has not fallen in the last 3 months. 6. The patient is not on blood thinners or medicine for hypertension. 7. Opiate therapy is greater than 6 weeks; therefore, an opioid signed contract is on the chart. His risk assessment tool is low. Functional assessment is 46/70. 8. Recreational drug use, he denies. He is a former smoker and does currently vape. He does drink alcohol as well. According to the prescription monitoring system, the patient is filling appropriately for his medications in a timely fashion. We will check a drug [address] [address] PAIN MANAGEMENT CONSULTATION Name: DIAMANTE MAYER Room #: REG DENYS René#: [id number] Admission: 05/29/19 Attend Phys: Morenita Charles Discharge: Date of : 75 Report #: [id number] screen on him in the future as well as there is none recently in his chart. PHYSICAL EXAMINATION: GENERAL: This is a well-developed, well-nourished, well-hydrated 43-year-old gentleman who appears his stated age, placing his current pain score at 2-3/10 today. HEENT: Normocephalic, atraumatic. Pupils equal, round and reactive to light. EXTREMITIES: No clubbing, no cyanosis, no edema. MUSCULOSKELETAL: The patient moves from sitting to standing without difficulty. His lower extremity strength is symmetrical at 5/5 and intact to light touch from L1-S2. Seated straight leg raising is negative. He has tenderness along his lumbar spine today. ASSESSMENT: 1. Symptomatic lumbar radiculopathy. 2. Lumbosacral spondylosis with radiculopathy. 3. Failed lumbar spine surgery. 4. Chronic intractable pain. We reviewed the fact that opiate medications are being used to provide analgesia adequate to support activities of daily living, not attempting to achieve a specific pain score on the 0-10 Visual Analog Scale. The current opiate medications are providing sufficient analgesia to allow the patient to participate in activities of daily living. The patient is not exhibiting any aberrant behavior suggestive of drug diversion. The patient is not having any adverse reactions to medications. The patient is not suffering from daytime somnolence or mental acuity changes. The patient is managing opiate-induced constipation with appropriate yzyz-lxf-bbhxlvz agents and dietary considerations. The patient was counseled on concern for caution with operating a motor vehicle while using opiate medications. A physical exam was performed and the patient's functional status was evaluated. All patients with back pain were advised against the bed rest greater than 4 days and were advised to return to normal activities. Pain score assessment was noted and the treatment plan was reviewed with the patient. All current medications, both prescribed and OTC were reviewed and reconciled on the electronic medical record. Tobacco screening was accomplished and smoking cessation was advised when indicated. BMI was noted and diet/exercise modification was recommended for all patients following outside normal parameters. I reviewed with the patient today their responsibilities to safeguard prescription medications, reviewed their responsibility to utilize medications only as prescribed by the physician. They are to seek and receive pain medications only from 1 physician group ([facility]). They are to use 1 pharmacy and keep the clinic informed if they change pharmacies. Their [address] [address] PAIN MANAGEMENT CONSULTATION Name: DIAMANTE MAYER Room #: REG DENYS [place]#: [id number] Admission: 05/29/19 Attend Phys: Morenita Charles Discharge: Date of : 75 Report #: [id number] responsibilities include making followup visits in a timely fashion and to avoid abrupt discontinuation of medication usage. Their responsibilities further include bringing their medications (bottles from the pharmacy with residual pills) to the visit for possible confirmation of pill counts and the patient understands it is their responsibility to submit to random drug screens to ensure both that the medications prescribed are present, and that no other controlled substances are present. All prescriptions provided today were generated electronically. PLAN: 1. We discussed treatment options with the patient today. The patient finds the buprenorphine very beneficial with minimal side effects. He takes 1-2 tablets a day, occasionally splitting this medicine in half. Scripts given today for 2 mg tablets, #60 for today for an 8-week release. This medication places him at 20 morphine mEq according to the CDC guidelines. 2. The patient requested a disability placard for his car. I explained to him that he does not meet the criteria and we did go over the criteria on the form. He tells me that at times it is difficult to walk greater than 100 feet, but I informed him that he should try to take a break. rest in between, but it is not our practice to give out disability placard to someone we are encouraging activity. The patient verbalizes understanding. 3. We also talked about smoking cessation, i.e. vaping. He has stopped cigarette smoking, but has started vaping as a way to try and decrease his nicotine. I encouraged him and counseled him in other ways changing his pattern, using distraction instead of vaping. 4. The patient is seen in collaboration with Dr. Kimani Britt. He will return in 3 months. At that time, we will repeat a urine drug screen on this patient. <ELECTRONICALLY SIGNED> By: Morenita Charles 05/30/19 1413 1310 [id number] Morenita Charles /nt
== END ==
LOC: PAIN 07:16
DX: M47.26 Other spondylosis with radiculopathy, lumbar region (principal); G89.4 Chronic pain syndrome

== ENCOUNTER → 2019-10-02 | Outpatient (CLI) | payer BC ==
[~2019-10-02] VITALS: Ht 185.4 cm; Wt 112.4 kg
[2019-10-02 08:30] VITALS: BP 131/70
--- NOTE | 2019-10-02 08:45 | NUR ---
Pain Clinic Assessment: 1. History of Osteoarthritis: SPINE History of Rheumatoid Arthritis: NONE 2. Height: 6 ft. 1 in. 185.4 cm. Weight: 247.8 lb. oz. 112.402 kg. Patient's BMI: 32.7 3. Vital Signs: BP: 131/70 Pulse: 80 Resp: 16 Temp: 02 Sat: 99 ECG Mon: 4. Pain Intensity: 5 5. Fall Risk: Dizziness: N Needs help standing or walking: N Fallen in the last 3 months: N Fall risk comments: 6. Patient on Blood Thinner: None 7. History of Hypertension: N 8. Opioid Therapy greater than 6 weeks: Y Opiate Contract Signed: 10/10/17 9. Risk Assessment Tool Provided: 1/low 10. Functional Assessment Tool: 11. Recreational Drug Use: Never Drug Type: Tobacco Use: Former Smoker Tobacco Type: Amount or Packs/day: How Many Years: Alcohol Use: Yes Frequency: Quant:
--- NOTE | 2019-10-03 09:23 | HPC ---
[facility] [place] [address] PAIN MANAGEMENT CONSULTATION Name: DIAMANTE MAYER Room #: REG [facility]..#: [id number] Admission: 10/02/19 Attend Phys: Morenita Charles Discharge: Date of : 75 Report #: [id number] THIS REPORT FOR: cc: SAGRARIO Sultana family physician/PCP SAGRARIO - Kayy family physician/PCP Morenita Charles ~ THIS REPORT FOR: //name// CC: Morenita Charles [facility] physician/PCP DATE OF SERVICE: 10/02/2019 CHIEF COMPLAINT: Low back pain, left lower extremity pain and paresthesias. HISTORY OF PRESENT ILLNESS: This is a 44-year-old gentleman who returns to the pain clinic today for a refill of his medication. He is reporting his pain score of 5/10 today. He states that his pain is slightly more elevated since the weather keeps changing. He reports prolonged sitting, standing and activity also increases pain in his low back and left leg. There is a numbness with occasional sharp and shooting episodes. He feels that the medications are beneficial as well as hot baths and lying down. He feels that he has gained more weight on this medication and is wondering if that is a side effect of the medication that he is on. Today, he would like refills of his buprenorphine. ALLERGIES: No known drug allergies. CURRENT LIST OF MEDICATIONS: Buprenorphine 2 mg daily. PQRS: 1. He has osteoarthritic changes in his lumbar spine. He denies any rheumatoid arthritis. 2. Height is 6 feet 1 inch, weight is 247, BMI is 32. 3. Vital signs: Blood pressure 131/70, pulse is 80, respirations 16, oxygen sat is 99. 4. Pain score is 5/10. 5. Denies dizziness, does not need help walking or standing, has not fallen in the last 3 months. 6. The patient is not on any blood thinners or medicine for hypertension. 7. Opiate therapy is greater than 6 weeks; therefore, an opioid signed contract is on the chart. Risk assessment tool is low. Functional assessment is 46/70. 8. Recreational drug use, he denies. He is a former smoker and occasionally drinks alcohol. According to the prescription monitoring system, the patient filling appropriately. He is due for his prescriptions today. Sometimes, he does take [address] [address] PAIN MANAGEMENT CONSULTATION Name: DIAMANTE AMYER Room #: REG [facility] Uche.#: [id number] Admission: 10/02/19 Attend Phys: Morenita Charles Discharge: Date of : 75 Report #: [id number] one tablet a day, other days he does require 2 for his pain. According to the CDC guidelines, his morphine mEq is 14-28 mme's per day. We will check a random drug screen on this patient today as well. PHYSICAL EXAMINATION: GENERAL: This is alert and orientated, well-developed, well-nourished 44-year-old gentleman who appears his stated age, placing his current pain score at 5/10. HEENT: Normocephalic, atraumatic. Extraocular eye muscles are intact. Mucous membranes are moist. EXTREMITIES: No clubbing, no cyanosis, no edema. MUSCULOSKELETAL: He has tenderness in his lower lumbosacral region, radiates into his left leg, has most from sitting to standing independently without difficulty. Seated straight leg raising is negative. Has modified Gaenslen's positive for axial low back pain. Supine straight leg raising is mildly positive. His lower extremity strength judged to be 5/5 in all major muscle groups. ASSESSMENT: 1. Symptomatic lumbar radiculopathy. 2. Lumbosacral spondylosis with radiculopathy. 3. Failed lumbar spine syndrome. 4. Chronic intractable pain. We reviewed the fact that opiate medications are being used to provide analgesia adequate to support activities of daily living, not attempting to achieve a specific pain score on the 0-10 Visual Analog Scale. The current opiate medications are providing sufficient analgesia to allow the patient to participate in activities of daily living. The patient is not exhibiting any aberrant behavior suggestive of drug diversion. The patient is not having any adverse reactions to medications. The patient is not suffering from daytime somnolence or mental acuity changes. The patient is managing opiate-induced constipation with appropriate axwh-bfi-rjugeky agents and dietary considerations. The patient was counseled on concern for caution with operating a motor vehicle while using opiate medications. PLAN: 1. We discussed treatment options with the patient today. The patient is wondering if buprenorphine does cause increased weight gain. I explained to him I am not sure of that specific side effect, though as we get older or metabolism does slow down, that does possibly increase her weight, though review of his chart shows his weight is the same today as it was even last February. The patient does explain that he works out and follows a 2000 calorie diet. I encouraged the patient to continue as he is and seems that his weight is stable. 2. We will refill his buprenorphine 2 mg, #60. The patient takes 1-2 tablets a day; therefore, last seen him slightly longer than his 3 months that we will [address] [address] PAIN MANAGEMENT CONSULTATION Name: DIAMANTE MAYER Room #: REG [facility] [place].#: [id number] Admission: 10/02/19 Attend Phys: Morenita Charles Discharge: Date of : 75 Report #: [id number] prescribe for him today. 3. The patient denies any problems with constipation as a result of his medications. The patient is seen today in collaboration with Dr. Ravi Calderon who has written his prescriptions. The patient will return in 3 months. <ELECTRONICALLY SIGNED> By: Morenita Charles 10/03/19 0923 [id number] Morenita Charles /bob
== END ==
LOC: PAIN 06:41
DX: M47.27 Other spondylosis with radiculopathy, lumbosacral region (principal); G89.4 Chronic pain syndrome; Z79.899 Other long term (current) drug therapy

== ENCOUNTER → 2020-01-01 | Outpatient (CLI) | payer BC ==
[~2020-01-01] VITALS: Ht 185.4 cm; Wt 115.7 kg
[2020-01-01 09:05] VITALS: BP 133/75
--- NOTE | 2020-01-01 09:16 | NUR ---
Pain Clinic Assessment: 1. History of Osteoarthritis: SPINE History of Rheumatoid Arthritis: NONE 2. Height: 6 ft. 1 in. 185.4 cm. Weight: 255.0 lb. oz. 115.668 kg. Patient's BMI: 33.7 3. Vital Signs: BP: 133/75 Pulse: 91 Resp: 16 Temp: 02 Sat: 98 ECG Mon: 4. Pain Intensity: 4 5. Fall Risk: Dizziness: N Needs help standing or walking: N Fallen in the last 3 months: N Fall risk comments: 6. Patient on Blood Thinner: None 7. History of Hypertension: N 8. Opioid Therapy greater than 6 weeks: Y Opiate Contract Signed: 10/10/17 9. Risk Assessment Tool Provided: 1/low 10. Functional Assessment Tool: 11. Recreational Drug Use: Never Drug Type: Tobacco Use: Former Smoker Tobacco Type: Cigarettes Amount or Packs/day: 1 How Many Years: 20 Alcohol Use: Yes Frequency: Weekly Quant: WINE
--- NOTE | 2020-01-01 14:44 | HPC ---
[facility] [address] [place] [address] PAIN MANAGEMENT CONSULTATION Name: DIAMANTE MAYER Room #: REG [facility].#: [id number] Admission: 01/01/20 Attend Phys: Morenita Charles Discharge: Date of : 75 Report #: [id number] THIS REPORT FOR: cc: SAGRARIO - Kayy family physician/PCP FAM - No family physician/PCP Morenita Charles ~ CC: Kimani Britt DO DATE OF SERVICE: 01/01/2020 CHIEF COMPLAINT: Low back pain, left lower extremity pain and paresthesias. HISTORY OF PRESENT ILLNESS: This is a 44-year-old gentleman who returns to the pain clinic today for refill of his opioid medications that he helps treat his ongoing low back pain. Today, he is reporting an increase in his left leg pain. He reports that it started about a month ago and he has not been able to decrease the pain with his normal regimen of using heat, massage, hot tub and his medications. The pain remains constant with numbness down his left leg that is shooting from his left buttock to his foot. Today, he is reporting a pain score of 4/10. He is wondering about options to help relieve some of this pain today as well as refill of his medications. The patient does report that he was sick about a month ago. He believes he did have the COVID virus. He states he had a fever, sore throat, his entire body ache. He did have some chest discomfort. He did not seek medical attention because he did not want to go to the doctor and he treated it at home. His was sick as well. He states his body still feels tired, but he has not had any other symptoms for quite some time. ALLERGIES: No known drug allergies. CURRENT LIST OF MEDICATIONS: Buprenorphine 2 mg sublingually b.i.d. and PEA, Soma p.r.n. PQRS: 1. He has osteoarthritic changes of his lumbar spine. He denies any rheumatoid arthritis. 2. Height is 6 feet 1 inches. 3. Weight is 255, BMI is 33. 4. Vital signs; blood pressure 133/75, pulse is 91, respirations 16, and oxygen sat is 98%. 5. Pain score is 4/10. 6. Denies dizziness, does not need help walking or standing, has not fallen in the last 3 months. 7. The patient is not on any blood thinners, but [place] [address] PAIN MANAGEMENT CONSULTATION Name: DIAMANTE MAYER Room #: REG [facility].#: [id number] Admission: 01/01/20 Attend Phys: Morenita Charles Discharge: Date of : 75 Report #: [id number] hypertension. 8. Opiate therapy is greater than 6 weeks; therefore, an opioid signed contract is on the chart. Risk assessment tool is low. Functional assessment is 46/70. 9. Recreational drug use, he denies. He is a former smoker and occasionally drinks alcohol. According to the prescription monitoring system, the patient is filling appropriately for his medications. He is due to fill those medicines today, filling them in a timely fashion from physicians from our clinic. There is a drug screen on the chart that is appropriate for his medication and he does state positive for nicotine, though he reports he is no longer smoking. PHYSICAL EXAMINATION: GENERAL: This is alert and orientated, well-developed, well-nourished gentleman who appears his stated age, placing his current pain score at 4/10 today. HEENT: Normocephalic and atraumatic. Extraocular eye muscles are intact. Mucous membranes are moist. MUSCULOSKELETAL: The patient has tenderness in his lower lumbosacral region that radiates into his left buttock down his left leg following the L5-S1 dermatomal distribution. He moves from sitting to standing independently. Seated straight leg raising is positive. His lower extremity strength is 5/5 in all major muscle groups. ASSESSMENT: 1. Symptomatic lumbar radiculopathy. 2. Lumbosacral spondylosis with radiculopathy. 3. Failed lumbar spine surgery. 4. Chronic intractable pain. We reviewed the fact that opiate medications are being used to provide analgesia adequate to support activities of daily living, not attempting to achieve a specific pain score on the 0-10 Visual Analog Scale. The current opiate medications are providing sufficient analgesia to allow the patient to participate in activities of daily living. The patient is not exhibiting any aberrant behavior suggestive of drug diversion. The patient is not having any adverse reactions to medications. The patient is not suffering from daytime somnolence or mental acuity changes. The patient is managing opiate-induced constipation with appropriate eknv-ixm-wxiqywc agents and dietary considerations. The patient was counseled on concern for caution with operating a motor vehicle while using opiate medications. A physical exam was performed and the patient's functional status was evaluated. All patients with back pain were advised against the bed rest greater than 4 days and were advised to return to normal activities. Pain score assessment was noted and the treatment plan was reviewed with the patient. All current medications, both prescribed and OTC were reviewed and reconciled on the [address] [address] PAIN MANAGEMENT CONSULTATION Name: DIAMANTE MAYER Room #: REG [facility]#: [id number] Admission: 01/01/20 Attend Phys: Morenita Charles Discharge: Date of : 75 Report #: [id number] electronic medical record. Tobacco screening was accomplished and smoking cessation was advised when indicated. BMI was noted and diet/exercise modification was recommended for all patients following outside normal parameters. I reviewed with the patient today their responsibilities to safeguard prescription medications, reviewed their responsibility to utilize medications only as prescribed by the physician. They are to seek and receive pain medications only from 1 physician group ( [facility]). They are to use 1 pharmacy and keep the clinic informed if they change pharmacies. Their responsibilities include making followup visits in a timely fashion and to avoid abrupt discontinuation of medication usage. Their responsibilities further include bringing their medications (bottles from the pharmacy with residual pills) to the visit for possible confirmation of pill counts and the patient understands it is their responsibility to submit to random drug screens to ensure both that the medications prescribed are present, and that no other controlled substances are present. All prescriptions provided today were generated electronically. PLAN: 1. We discussed treatment options with the patient today. The patient states he has had a flare in his pain for at least a month. He has tried heat, stretching, use of hot tub as well as his medications of opioids as muscle relaxants and has not decreased this pain. We discussed a possible lumbar epidural steroid injection. The patient had had these in the past, though it has per the records been since 2011. I believe this may be an option for him since conservative measures have not been helpful. We will seek authorization for a lumbar epidural steroid injection at the L5-S1 level by Dr. Kimani Britt. Once we have approval, we will call the patient and schedule an appointment. 2. We will refill his buprenorphine 2 mg tablets, #60 for today for an 8-week. These will be written by Dr. Ravi Calderon who is covering for Dr. Kimani Britt today and collaborating with me. 3. I encouraged the patient to continue his conservative therapies as he has been doing at home, heat, ice, stretching to see if these are beneficial and to continue his muscle relaxant as well as his pain medications. <ELECTRONICALLY SIGNED> By: Morenita Charles 01/01/20 1444 [id number] Morenita Charles /nt
== END ==
LOC: PAIN 06:40
DX: M47.27 Other spondylosis with radiculopathy, lumbosacral region (principal); M79.605 Pain in left leg; R20.2 Paresthesia of skin; M96.1 Postlaminectomy syndrome, not elsewhere classified; G89.29 Other chronic pain

== ENCOUNTER → 2020-04-07 | Outpatient (CLI) | payer OTHER ==
[~2020-04-07] VITALS: Ht 185.4 cm; Wt 112.8 kg
[2020-04-07 08:11] VITALS: BP 137/77
--- NOTE | 2020-04-07 08:26 | NUR ---
Pain Clinic Assessment: 1. History of Osteoarthritis: SPINE History of Rheumatoid Arthritis: NONE 2. Height: 6 ft. 1 in. 185.4 cm. Weight: 248.6 lb. oz. 112.764 kg. Patient's BMI: 32.8 3. Vital Signs: BP: 137/77 Pulse: 88 Resp: 16 Temp: 02 Sat: 99 ECG Mon: 4. Pain Intensity: 4-5 5. Fall Risk: Dizziness: N Needs help standing or walking: N Fallen in the last 3 months: N Fall risk comments: 6. Patient on Blood Thinner: None 7. History of Hypertension: N 8. Opioid Therapy greater than 6 weeks: Y Opiate Contract Signed: 10/10/17 9. Risk Assessment Tool Provided: 1/low 10. Functional Assessment Tool: 11. Recreational Drug Use: Never Drug Type: Tobacco Use: Former Smoker Tobacco Type: Amount or Packs/day: How Many Years: Alcohol Use: Yes Frequency: Quant:
--- NOTE | 2020-04-08 14:23 | HPC ---
[facility] [address] [address] PAIN MANAGEMENT CONSULTATION Name: DIAMANTE MAYER Room #: REG [facility] M.R.#: [id number] Admission: 04/07/20 Attend Phys: Morenita Charles Discharge: Date of : 75 Report #: [id number] THIS REPORT FOR: cc: SAGRARIO - No family physician/PCP FAM - No family physician/PCP Morenita Charles ~ CC: Kimani Britt DO DATE OF SERVICE: 04/07/2020 CHIEF COMPLAINT: Low back pain, left lower extremity pain and paresthesias. HISTORY OF PRESENT ILLNESS: This is a pleasant 44-year-old gentleman who returns to the pain clinic today for medication management. He continues to have ongoing low back pain that radiates down his left leg into his foot, has numbness, sharp shooting pain at times. Today, he is rating his pain at 4/5, is worse with activity, standing, walking and driving. He feels that the medication has been beneficial as well as hot baths, lying down and stretching. He does exercise every day, using yoga stretching technique and occasional water therapy. He feels that this along with his medications have been very beneficial in relieving some of his pain, though it has continued to increase slightly. He was wondering about epidural steroid injection as well as his medication refills today. He does deny any daytime somnolence or constipation as a result of his medications. ALLERGIES: No known drug allergies. CURRENT LIST OF MEDICATIONS: Buprenorphine 2 mg b.i.d. p.r.n. pain. PQRS: 1. He has arthritic changes in his lumbar spine. Denies any rheumatoid arthritis. 2. Height is 6 feet 1 inches, weight is 248, BMI is 32. Vital signs; blood pressure 133/77, pulse is 88, respirations 16, oxygen sat is 99%. Pain score is 4-5/10. Fall risk, denies dizziness, does not need help walking or standing, has not fallen in the last 3 months. 3. The patient is not on blood thinners or medicines for hypertension. His opioid therapy is greater than 6 weeks; therefore, an opioid signed contract is on the chart. Risk assessment is low. Functional assessment is 46/70. 4. Recreational drug use, he denies. He is a former smoker and occasionally drinks alcohol. According to the prescription monitoring system, the patient is filling appropriately. He is due to fill his medications today, filling them in a timely fashion. There is a recent drug screen on the chart that is appropriate as [place] [address] PAIN MANAGEMENT CONSULTATION Name: DIAMANTE MAYER Room #: REG [facility]#: [id number] Admission: 04/07/20 Attend Phys: Morenita Charles Discharge: Date of : 75 Report #: [id number] PHYSICAL EXAMINATION: GENERAL: This is alert and orientated, well-developed, well-nourished 44-year-old gentleman who appears his stated age, placing his current pain score at 4/5 today. HEENT: Normocephalic and atraumatic. Extraocular eye muscles are intact. Mucous membranes are moist. He is wearing a mask today. MUSCULOSKELETAL: Tenderness in his lumbosacral region that does radiate into his left buttock, into his left leg following the L5-S1 dermatomal distribution into his foot with numbness and tingling. He can move from sitting to standing independently. Seated straight leg raising is positive. His lower extremity strength is symmetrical at 5/5 with good sensation from L1-S2. ASSESSMENT: 1. Symptomatic lumbar radiculopathy. 2. Lumbosacral spondylosis with radiculopathy. 3. Failed lumbar spine surgery. 4. Chronic intractable pain. 5. Medical management under terms of written opioid agreement. We reviewed the fact that opiate medications are being used to provide analgesia adequate to support activities of daily living, not attempting to achieve a specific pain score on the 0-10 Visual Analog Scale. The current opiate medications are providing sufficient analgesia to allow the patient to participate in activities of daily living. The patient is not exhibiting any aberrant behavior suggestive of drug diversion. The patient is not having any adverse reactions to medications. The patient is not suffering from daytime somnolence or mental acuity changes. The patient is managing opiate-induced constipation with appropriate metc-kmh-ggmlohz agents and dietary considerations. The patient was counseled on concern for caution with operating a motor vehicle while using opiate medications. A physical exam was performed and the patient's functional status was evaluated. All patients with back pain were advised against the bed rest greater than 4 days and were advised to return to normal activities. Pain score assessment was noted and the treatment plan was reviewed with the patient. All current medications, both prescribed and OTC were reviewed and reconciled on the electronic medical record. Tobacco screening was accomplished and smoking cessation was advised when indicated. BMI was noted and diet/exercise modification was recommended for all patients following outside normal parameters. I reviewed with the patient today their responsibilities to safeguard prescription medications, reviewed their responsibility to utilize medications only as prescribed by the physician. They are to seek and receive pain medications only from 1 physician group ([facility]). They are to use [address] [address] PAIN MANAGEMENT CONSULTATION Name: DIAMANTE MAYER Room #: REG [facility]#: [id number] Admission: 04/07/20 Attend Phys: Morenita Charles Discharge: Date of : 75 Report #: [id number] pharmacy and keep the clinic informed if they change pharmacies. Their responsibilities include making followup visits in a timely fashion and to avoid abrupt discontinuation of medication usage. Their responsibilities further include bringing their medications (bottles from the pharmacy with residual pills) to the visit for possible confirmation of pill counts and the patient understands it is their responsibility to submit to random drug screens to ensure both that the medications prescribed are present, and that no other controlled substances are present. All prescriptions provided today were generated electronically. PLAN: 1. We discussed treatment options with the patient today. I think that it is appropriate to try another lumbar epidural steroid injection on this patient due to increasing pain. He has had these in the past that has been beneficial, though has been several years since he has an injection. He has been using conservative measures, which have been helpful, but are slowly decreasing in efficacy. We will seek authorization of a lumbar epidural steroid injection at the L5-S1 level by Dr. Kimani Britt. Once we have approval, we will schedule him back for his injection prior to the end of the month. 2. We will continue him on his current medications, Buprenorphine 2 mg tablets, #60. Scripts given for today, 4-week and 8-week supply. These will be given by Dr. Kimani Britt who is collaborating care with me. 3. The patient is to continue his conservative therapy of heat, ice, stretching and exercise while complete the authorization process. <ELECTRONICALLY SIGNED> By: Morenita Charles 04/08/20 1423 [id number] Morenita Charles /nt
== END ==
LOC: PAIN 06:48
PROVIDERS: ATTEND Clinical Nurse Specialist Adult Health
DX: G89.29 Other chronic pain (principal); M47.27 Other spondylosis with radiculopathy, lumbosacral region; Z68.32 Body mass index [BMI] 32.0-32.9, adult; Z98.890 Other specified postprocedural states; Z79.891 Long term (current) use of opiate analgesic; Z79.899 Other long term (current) drug therapy

== ENCOUNTER → 2020-07-14 | Outpatient (CLI) | payer OTHER ==
[~2020-07-14] VITALS: Ht 185.4 cm; Wt 115.7 kg
[~2020-07-14] MED LIST changes: +BACLOFEN20 MG PO; +RELAFEN500 M1 PO
[2020-07-14 08:43] VITALS: BP 163/80
--- NOTE | 2020-07-15 08:05 | HPC ---
[facility] [place] [address] PAIN MANAGEMENT CONSULTATION Name: DIAMANTE MAYER Room #: REG [facility] M..#: [id number] Admission: 07/14/20 Attend Phys: Morenita Charles Discharge: Date of : 75 Report #: [id number] THIS REPORT FOR: cc: FAM - No family physician/PCP FAM - No family physician/PCP Morenita Charles ~ CC: Morenita Britt DO DATE OF SERVICE: 07/14/2020 CHIEF COMPLAINT: Low back pain, left lower extremity pain and paresthesias. HISTORY OF PRESENT ILLNESS: This is a 45-year-old gentleman who returns to the pain clinic today for refill of his medications. Today, he is reporting an increasing pain across his lower back that is radiating into his bilateral thighs with increased numbness on his left leg. He feels that his leg is slightly weaker than it had been in the past and having more cramping sensations in his thighs. The patient is reporting a pain score of 6/10, worse with any activity and walking. He does continue to work out and has noticed increasing back pain after strenuous exercise. He feels his medications are beneficial utilizing 1-2 buprenorphine a day and occasional Advil. He does take Soma that he has had in the past when his pain and his muscle spasms are significantly worse and finds this beneficial. The patient reports that he is starting a new job and has better insurance. He feels that his medications are being covered at a lower rate and he is thankful for this. He continues to stay well during this COVID outbreak. ALLERGIES: No known drug allergies. CURRENT LIST OF MEDICATIONS: Buprenorphine 2 mg b.i.d., Soma p.r.n., Advil p.r.n. PQRS: 1. 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 Denies any rheumatoid arthritis. 2. Height is 6 feet 1 inch, weight is 255, BMI is 33. 3. Vital signs, blood pressure 163/80, pulse is 77, respirations 16, oxygen sat is 99. 4. Pain score 6/10. 5. Denies dizziness, does not need help walking or standing, has not fallen in the last 3 months. 6. The patient is not on any blood thinners or medicine for hypertension. 7. Opioid therapy is greater than 6 weeks; therefore, an opioid signed contract is on the chart. Risk assessment is low. Functional assessment is 46/70. [address] [address] PAIN MANAGEMENT CONSULTATION Name: DIAMANTE MAYER [id number] Admission: 07/14/20 Attend Phys: Morenita Charles Discharge: Date of : 75 Report #: [id number] 8. Recreational drug use, he denies. He is a former smoker and does drink alcohol. According to the prescription monitoring system, the patient is filling appropriately his morphine in a timely fashion. He is due to fill at the end of this month. There is a drug screen on the chart that is appropriate for his medications. PHYSICAL EXAMINATION: GENERAL: This is alert and orientated 45-year-old gentleman who appears his stated age, placing his current pain score at 6/10. He is well-developed, well-nourished. HEENT: Normocephalic, atraumatic. Extraocular eye muscles are intact. Mucous membranes are moist. He is wearing a mask. MUSCULOSKELETAL: He has tenderness in his lumbosacral region that radiates into his bilateral legs following the L5-S1 dermatomal distribution. Pain is greater on the left than the right. Tenderness in the paraspinal musculature of the lumbar spine. He moves independently from the seated to standing position. His lower extremity strength is symmetrical at 5/5. ASSESSMENT: 1. Symptomatic lumbar radiculopathy. 2. Lumbosacral spondylosis with radiculopathy. 3. Failed lumbar spine surgery. 4. Chronic intractable pain. PLAN: 1. We discussed treatment options with the patient today. The patient has had ongoing flare in his pain since the last several months. He has utilized occasional muscle relaxants as well as nonsteroidal anti-inflammatories. He does have Soma at home, which does make him feel sedated during the day, so he has been using this very sparingly. We will offer him baclofen 20 mg tablets to see if this is a helpful muscle relaxant with less sedating properties. Scripts for #30 will be sent electronically. 2. We encouraged the patient to try a nonsteroidal anti-inflammatory. We talked about several adjuvant medications to utilize with his opioid medications to hopefully decrease some of his pain. The patient has been taking Advil on an as needed basis. We will send a prescription for Relafen 500 mg b.i.d. The patient to take it 1-2 times daily as needed. 3. We did discuss treatment options in the form of a lumbar epidural steroid injection. We attempted to seek authorization for this earlier this year, but his insurance company had denied it. He does have different insurance, at this point, I believe they will cover a lumbar epidural steroid injection. The patient is apprehensive about having an injection that he has had in the past that has not been beneficial, but due to his symptoms we will attempt authorization. He has in the past had a spinal cord stimulator trial that was [facility] [address] [place] [address] PAIN MANAGEMENT CONSULTATION Name: DIAMANTE MAYER Room #: [facility]#: [id number] Admission: 07/14/20 Attend Phys: Morenita Charles Discharge: Date of : 75 Report #: [id number] unsuccessful in helping treat his pain. Appointment will be made after the patient determines he is willing to have this epidural. 4. Dr. Kimani Britt did provide his buprenorphine 2 mg b.i.d. for 3 months as well and collaborated care today. <ELECTRONICALLY SIGNED> By: Morenita Charles 07/15/20 0805 1015 11 Morenita Charles /bob
== END ==
LOC: PAIN 06:45
PROVIDERS: ATTEND Clinical Nurse Specialist Adult Health
DX: M47.27 Other spondylosis with radiculopathy, lumbosacral region (principal); M79.605 Pain in left leg; R20.2 Paresthesia of skin; G89.29 Other chronic pain; M96.1 Postlaminectomy syndrome, not elsewhere classified; Z79.899 Other long term (current) drug therapy

== ENCOUNTER → 2020-12-15 | Outpatient (CLI) | payer OTHER ==
[~2020-12-15] VITALS: Ht 185.4 cm; Wt 107.0 kg
[2020-12-15 09:25] VITALS: BP 141/84
--- NOTE | 2020-12-15 09:40 | NUR ---
Pain Clinic Assessment: 1. History of Osteoarthritis: SPINE History of Rheumatoid Arthritis: NONE 2. Height: 6 ft. 1 in. 185.4 cm. Weight: 236.0 lb. oz. 107.049 kg. Patient's BMI: 31.1 3. Vital Signs: BP: 141/84 Pulse: 79 Resp: 14 Temp: 02 Sat: 99 ECG Mon: 4. Pain Intensity: 2 5. Fall Risk: Dizziness: N Needs help standing or walking: N Fallen in the last 3 months: N Fall risk comments: 6. Patient on Blood Thinner: None 7. History of Hypertension: N 8. Opioid Therapy greater than 6 weeks: Y Opiate Contract Signed: 10/10/17 9. Risk Assessment Tool Provided: 1/low 10. Functional Assessment Tool: 11. Recreational Drug Use: Never Drug Type: Tobacco Use: Former Smoker Tobacco Type: Amount or Packs/day: How Many Years: Alcohol Use: Yes Frequency: Weekly Quant: [id number]
--- NOTE | 2020-12-15 14:57 | HPC ---
[facility] [address] [address] PAIN MANAGEMENT CONSULTATION Name: DIAMANTE MAYER Room #: REG [facility] M..#: [id number] Admission: 12/15/20 Attend Phys: Morenita Charles Discharge: Date of : 75 Report #: [id number] THIS REPORT FOR: cc: FAM - No family physician/PCP FAM - No family physician/PCP Morenita Charles DATE OF SERVICE: 12/15/2020 CHIEF COMPLAINT: Low back pain, left lower extremity pain and paresthesias. HISTORY OF PRESENT ILLNESS: This is a 45-year-old gentleman who returns to the pain clinic today for renewal of his opioid medications. Today, he is reporting a pain score of 2/10. It is most problematic in his low back radiating down his left leg, though today, he is also complaining of left shoulder pain. He reports his shoulder is bothersome for the past 2 months, worse with he is working out. He is unsure that he injured it while exercising, but it has been problematic and his opioid medications are not beneficial in helping reduce that pain. Patient also reports his back pain as numbness, sharp, shooting pain that is worse with any activity, prolonged walking, standing and weather changes. Overall, he believes the medication as well as lying down and hot baths, heat and ice are beneficial in reducing his overall pain., Patient has been trying to lose weight. Since our last visit, he has lost 19 pounds. He reports trying to be mindful of what he eats and continues to exercise. He reports that he believes his back feels better because of his decreased weight. ALLERGIES: No known drug allergies. CURRENT LIST OF MEDICATIONS: Buprenorphine 2 mg tablets p.r.n., nabumetone, baclofen. PQRS: 1. He has osteoarthritic changes in his spine. Denies any rheumatoid arthritis. 2. Height is 6 feet 1 inch, weight is 236, BMI is 31. 3. Vital signs 141/84, pulse is 79, respirations 14, oxygen sat is 99%. 4. Pain score is 2/10. 5. Denies dizziness, does not need help walking or standing, has not fallen in the last 3 months. 6. The patient is not on any blood thinners or medicine for hypertension. Opioid therapy is greater than 6 weeks; therefore, an opioid signed contract is on the chart. Risk assessment is low. Functional assessment is 46/70. 7. Recreational drug use, he denies. He is a former smoker [place] [address] PAIN MANAGEMENT CONSULTATION Name: DIAMANTE MAYER Room #: REG [facility] René#: [id number] Admission: 12/15/20 Attend Phys: Morenita Charles Discharge: Date of : 75 Report #: [id number] According to the prescription monitoring system, he is due to fill his medications today, filling them in a timely fashion. There is a urine drug screen on the chart that is appropriate as well. We will collect that at his next appointment again. PHYSICAL EXAMINATION: GENERAL: This is alert and orientated 45-year-old gentleman who appears his stated age, rating his pain score today at 2/10. He is well developed and well nourished. HEENT: Normocephalic, atraumatic. Extraocular eye muscles are intact. Mucous membranes are moist. He is wearing a mask. MUSCULOSKELETAL: He has tenderness in his lumbosacral region that radiates into his legs bilaterally, greater on the left than the right, following the L5-S1 dermatomal distribution. Tenderness in his left shoulder today. Pain increases with abduction, greater than 90 degrees. No crepitus noted. He moves independently from the seated to standing position and walks with a normal gait. ASSESSMENT: 1. Symptomatic lumbar radiculopathy. 2. Lumbosacral spondylosis with radiculopathy. 3. Left shoulder pain. 4. Possible rotator cuff tear. 5. Failed lumbar spine surgery. 6. Chronic intractable pain, utilizing scheduled opioid medications. We reviewed the fact that opiate medications are being used to provide analgesia adequate to support activities of daily living, not attempting to achieve a specific pain score on the 0-10 Visual Analog Scale. The current opiate medications are providing sufficient analgesia to allow the patient to participate in activities of daily living. The patient is not exhibiting any aberrant behavior suggestive of drug diversion. The patient is not having any adverse reactions to medications. The patient is not suffering from daytime somnolence or mental acuity changes. The patient is managing opiate-induced constipation with appropriate ryjp-hfz-dbvdorw agents and dietary considerations. The patient was counseled on concern for caution with operating a motor vehicle while using opiate medications. A physical exam was performed and the patient's functional status was evaluated. All patients with back pain were advised against the bed rest greater than 4 days and were advised to return to normal activities. Pain score assessment was noted and the treatment plan was reviewed with the patient. All current medications, both prescribed and OTC were reviewed and reconciled on the electronic medical record. Tobacco screening was accomplished and smoking cessation was advised when indicated. BMI was noted and diet/exercise modification was recommended for all patients following outside normal parameters. [address] [address] PAIN MANAGEMENT CONSULTATION Name: DIAMANTE MAYER Room #: REG [facility]#: [id number] Admission: 12/15/20 Attend Phys: Morenita ALECIA Araceli Discharge: Date of : 75 Report #: [id number] I reviewed with the patient today their responsibilities to safeguard prescription medications, reviewed their responsibility to utilize medications only as prescribed by the physician. They are to seek and receive pain medications only from 1 physician group ( [facility]). They are to use 1 pharmacy and keep the clinic informed if they change pharmacies. Their responsibilities include making followup visits in a timely fashion and to avoid abrupt discontinuation of medication usage. Their responsibilities further include bringing their medications (bottles from the pharmacy with residual pills) to the visit for possible confirmation of pill counts and the patient understands it is their responsibility to submit to random drug screens to ensure both that the medications prescribed are present, and that no other controlled substances are present. All prescriptions provided today were generated electronically. PLAN: 1. We discussed treatment options with the patient today. We will continue him on his buprenorphine 2 mg tablets. He uses these 1-2 tablets a day depending on his pain score. Scripts will be given to him by Dr. Kimani Britt for 60 tablets for today, 4-week and 8-week releases. 2. The patient reports he does not needing his baclofen or Relafen refilled at this time. He does use these sparingly when his pain is increased. 3. We discussed his shoulder. Encouraging him to seek out his primary care doctor to have x-rays performed. At this time the patient is not wanting to have any further testing done due to cost. I encouraged him to use csyi-ggp-fzwlsyp Voltaren gel to his shoulder several times a day to see if that is helpful in decreasing any arthritic issues that may arise, but informed him if it is a rotator cuff issue that would need to be surgically repaired. Time spent with the patient in consultation, reviewing pertinent imaging and reviewing recent studies, clinical notes and physical reports, physical examination and correlation of physical findings of medical documentation to determine possible treatments, 16 minutes. Time spent in preparation for appointment, reviewing prescription monitoring system, reviewing previous records and treatment options and reviewing current medications, 5 minutes. Time spent preparing and sending electronic prescriptions with collaborating physician, Dr. Kimani Britt, documentation of visit and plan of care, 5 minutes. Total time spent 27 minutes. <ELECTRONICALLY SIGNED> By: Morenita Charles 12/15/20 1457 [id number] Morenita Charles /nt
== END ==
LOC: PAIN 09:07
PROVIDERS: ATTEND Clinical Nurse Specialist Adult Health
DX: M47.27 Other spondylosis with radiculopathy, lumbosacral region (principal); G89.4 Chronic pain syndrome; M79.662 Pain in left lower leg; R20.2 Paresthesia of skin; Z79.891 Long term (current) use of opiate analgesic; Z79.899 Other long term (current) drug therapy

== ENCOUNTER → 2021-04-13 | Outpatient (CLI) | payer OTHER ==
[~2021-04-13] VITALS: Ht 185.4 cm; Wt 111.9 kg
[~2021-04-13] MED LIST changes: +NABUMETONE 500500 M2 PO
[2021-04-13 10:59] VITALS: BP 132/84
--- NOTE | 2021-04-13 11:07 | NUR ---
Pain Clinic Assessment: 1. History of Osteoarthritis: SPINE History of Rheumatoid Arthritis: NONE 2. Height: ft. in. cm. Weight: lb. oz. kg. Patient's BMI: 3. Vital Signs: BP: 132/84 Pulse: 70 Resp: 18 Temp: 02 Sat: 99 ECG Mon: 4. Pain Intensity: 6-7 5. Fall Risk: Dizziness: N Needs help standing or walking: N Fallen in the last 3 months: N Fall risk comments: 6. Patient on Blood Thinner: None 7. History of Hypertension: N 8. Opioid Therapy greater than 6 weeks: Y Opiate Contract Signed: 10/10/17 9. Risk Assessment Tool Provided: 1/low 10. Functional Assessment Tool: 11. Recreational Drug Use: Never Drug Type: Tobacco Use: Former Smoker Tobacco Type: Amount or Packs/day: How Many Years: Alcohol Use: Yes Frequency: Weekly Quant:
--- NOTE | 2021-04-14 08:38 | HPC ---
[facility] [address] [place] [address] PAIN MANAGEMENT CONSULTATION Name: DIAMANTE MAYER Room #: REG [facility] M..#: [id number] Admission: 04/13/21 Attend Phys: Morenita Charles Discharge: Date of : 75 Report #: [id number] THIS REPORT FOR: cc: FAM - No family physician/PCP FAM - No family physician/PCP Morenita Charles ~ cc: Kimani Britt DO DATE OF SERVICE: 04/13/2021 CHIEF COMPLAINT: Low back pain, left lower extremity pain and paresthesias. HISTORY OF PRESENT ILLNESS: This is a 45-year-old gentleman who returns to the pain clinic today to discuss his ongoing low back pain. The patient reports that he has started a new job and is traveling more, at times that does aggravate his low back and leg. He reports he is no longer driving due to numbness he experiences when he is in certain positions. He reports since he is traveling so much, he takes an uber when he is out of town and his is driven him here today. Today, he reports that he has been taking the buprenorphine sparingly taking the lowest most effective dose usually 1 tablet every day with occasional two on more painful days. He believes this medication is beneficial in helping alleviate a significant portion of his pain. He does take baclofen and nabumetone on an as needed basis as well. Today, he rates his pain score at 6-7. He believes this is slightly higher due to his recent travel. He does complain of sharp, numbness sensation that is worse with any activity, standing, walking or weather changes. His best position is lying down. He also finds benefit from lying down as well as his medication. Today, he would like renewals of his buprenorphine as well as his adjuvant medications baclofen and nabumetone. ALLERGIES: No known drug allergies. CURRENT LIST OF MEDICATIONS: Buprenorphine 2 mg p.r.n., nabumetone and baclofen. PQRS: 1. He has osteoarthritis in his spine. Denies any rheumatoid arthritis. 2. Height is 6 feet 1 inch, BMI is 246. 3. Vital signs; blood pressure 132/84, pulse is 70, respirations 18, oxygen sat is 99%. Pain score 6-7. 4. Fall risk, denies dizziness, does not need help walking or standing, has not fallen in the last 3 months. He is not on any blood thinners or medication for hypertension. 5. Opioid therapy is greater than six weeks, therefore, he is on opioid signed contract and we will have him renew that today. 6. His risk assessment is low. Functional assessment is 46/70. 7. Recreational drug use, he denies. He is a former smoker and occasionally [address] [address] PAIN MANAGEMENT CONSULTATION Name: DIAMANTE MAYER Room #: REG [facility].Daisy.#: [id number] Admission: 04/13/21 Attend Phys: Morenita Charles Discharge: Date of : 75 Report #: [id number] drinks alcohol. According to the prescription monitoring system, he last filled 02/27. PHYSICAL EXAMINATION: GENERAL: This is alert and orientated 45-year-old gentleman who appears his stated age, rating his pain score today at 6-7. HEENT: Normocephalic and atraumatic. Extraocular eye muscles are intact. He is wearing a mask. MUSCULOSKELETAL: He has tenderness in his lumbosacral region that radiates into his legs bilaterally, greater on the left following the L5-S1 dermatomal distribution. Lower extremity strength is symmetrical at 5/5. He moves independently from the seated to standing position with a normal gait. He has good sensation from L1-S2. ASSESSMENT: 1. Symptomatic lumbar radiculopathy. 2. Lumbosacral spondylosis with radiculopathy. 3. Failed lumbar spine surgery. 4. Chronic intractable pain, utilizing scheduled opioid medications. We reviewed the fact that opiate medications are being used to provide analgesia adequate to support activities of daily living, not attempting to achieve a specific pain score on the 0-10 Visual Analog Scale. The current opiate medications are providing sufficient analgesia to allow the patient to participate in activities of daily living. The patient is not exhibiting any aberrant behavior suggestive of drug diversion. The patient is not having any adverse reactions to medications. The patient is not suffering from daytime somnolence or mental acuity changes. The patient is managing opiate-induced constipation with appropriate hwgr-bdi-rjvaqud agents and dietary considerations. The patient was counseled on concern for caution with operating a motor vehicle while using opiate medications PLAN: 1. We discussed treatment options with the patient today. The patient has been utilizing less buprenorphine then prescribed, which we encouraged lowest most effective dose. He is averaging 1 tablet a day with occasional 2. Therefore, his medication is lasting longer than three months. I did remind the patient that the pharmacy may try to give him a 7-day supply due to opioid naive just remind them that this is as needed medications and he does take that on a daily basis. Scripts will be written by Dr. Kimani Britt today and given to the patient to fill a buprenorphine 2 mg tablets sublingual #60 for today 4 week and 8 week release. Again, this medication may last him slightly longer as they had this time lasted 4 and half months. 2. We will continue him on his nabumetone 500 mg b.i.d., quantity #60 with 3 additional refills sent. If this does not affect his GI system at all, has no [facility] [address] [place] [address] PAIN MANAGEMENT CONSULTATION Name: DIAMANTE MAYER Room #: REG [facility].#: [id number] Admission: 04/13/21 Attend Phys: Morenita Charles Discharge: Date of : 75 Report #: [id number] complaints of discomfort while taking this medication, but we reminded him to take it with food. 3. will continue his baclofen 20 mg tablets #30 with 1 additional refill. The patient does take this when his back is aggravated from travel. The patient will continue on as needed basis. 4. The patient will return in 3 months or as needed. Time spent with the patient in consultation, reviewing pertinent imaging and clinical notes, physical examination and correlation of findings and medical documentation to determine possible treatment options 15 minutes. Time spent in preparation for appointment reviewing prescription monitoring reports, reviewing recent records and treatment options, reviewing current medications 5 minutes. Time spent preparing and sending medications with collaborating physician, Dr. Kimani Britt, documentation of visit, 5 minutes. Total time spent 25 minutes. <ELECTRONICALLY SIGNED> By: Morenita Charles 04/14/21 0838 [id number] Morenita Charles /bob
== END ==
LOC: PAIN 07:09
PROVIDERS: ATTEND Clinical Nurse Specialist Adult Health
DX: M47.27 Other spondylosis with radiculopathy, lumbosacral region (principal); G89.4 Chronic pain syndrome; Z79.899 Other long term (current) drug therapy; Z79.891 Long term (current) use of opiate analgesic

== ENCOUNTER → 2021-07-06 | Outpatient (CLI) | payer OTHER ==
[~2021-07-06] VITALS: Ht 182.9 cm; Wt 119.3 kg
[2021-07-06 08:57] VITALS: BP 143/84
--- NOTE | 2021-07-06 09:00 | NUR ---
Pain Clinic Assessment: 1. History of Osteoarthritis: SPINE History of Rheumatoid Arthritis: NONE 2. Height: 6 ft. 0 in. 182.9 cm. Weight: 263.0 lb. oz. 119.296 kg. Patient's BMI: 35.7 3. Vital Signs: BP: 143/84 Pulse: 80 Resp: 16 Temp: 02 Sat: 98 ECG Mon: 4. Pain Intensity: 5 5. Fall Risk: Dizziness: N Needs help standing or walking: N Fallen in the last 3 months: N Fall risk comments: 6. Patient on Blood Thinner: None 7. History of Hypertension: N 8. Opioid Therapy greater than 6 weeks: Y Opiate Contract Signed: 04/13/21 9. Risk Assessment Tool Provided: 1/low 10. Functional Assessment Tool: 11. Recreational Drug Use: Never Drug Type: Tobacco Use: Former Smoker Tobacco Type: Amount or Packs/day: How Many Years: Alcohol Use: Yes Frequency: Weekly Quant: 1-2
--- NOTE | 2021-07-07 08:48 | HPC ---
[facility] [address] [place] [address] PAIN MANAGEMENT CONSULTATION Name: DIAMANTE MAYER Room #: REG [facility] ..#: [id number] Admission: 07/06/21 Attend Phys: Morenita Charles Discharge: Date of : 75 Report #: [id number] THIS REPORT FOR: cc: FAM - No family physician/PCP FAM - No family physician/PCP Morenita Charles ~ cc: Kimani Britt DO DATE OF SERVICE: 07/06/2021 CHIEF COMPLAINT: Low back pain, left lower extremity pain and paresthesias. HISTORY OF PRESENT ILLNESS: This is a 46-year-old gentleman who returns to the pain clinic today for renewal of his pain medication. He feels this is beneficial in helping alleviate some of his low back pain, though he reports he is having increasing leg pain, especially with driving. He reports his left leg and foot have significant numbness and sharp pains when he does sit in certain positions. Lately he has not been driving a car and is considering selling his and let his drive him or use an Uber. He reports today a pain score of 5/10 that is worse with any activity and walking or weather changes, though he does continue to work out daily. He reports to me that the medications as well as hot baths and lying down have been beneficial. He has not been able to travel as much for the work due to some increase in his pain at times. Today, he reports that he has started taking [employer] supplement and he feels that has been beneficial in helping some of his left leg pain. The patient reports the baclofen is beneficial when he has severe muscle spasms in his lower back. He denies any constipation or daytime somnolence as a result of his opioid medications. ALLERGIES: No known drug allergies. CURRENT LIST OF MEDICATIONS: Buprenorphine 2 mg b.i.d., nabumetone, baclofen, [employer] Mush[employer] supplement. PQRS: 1. He has osteoarthritic changes in his spine. Denies any rheumatoid arthritis. Height is 6 feet, weight is 263, BMI is 35. 2. Vital signs 143/84, pulse is 80, respirations 16, oxygen sat is 98. 3. Pain score is 5/10. 4. Denies dizziness, does not need help walking or standing, has not fallen in the last 3 months. 5. The patient is not on any blood thinners or medication for hypertension. 6. Opioid therapy is greater than 6 weeks; therefore, an opioid signed contract is on the chart. 7. Risk assessment is low. Functional assessment is 46/70. 8. Recreational drug use, he denies. He does continue to use nicotine products and does use alcohol one to two drinks [address] [address] PAIN MANAGEMENT CONSULTATION Name: MORENOBROOKLYNDOUGLAS Room #: REG [facility]#: [id number] Admission: 07/06/21 Attend Phys: Morenita Charles Discharge: Date of : 75 Report #: [id number] 9. According to the prescription monitoring system, the patient is filling appropriately for his buprenorphine with no other medications filled from other providers. PHYSICAL EXAMINATION: GENERAL: This is alert and orientated 46-year-old gentleman who is well-developed, well-nourished and appears his stated age, rating his pain score at 5/10 today. HEENT: Normocephalic, atraumatic. Extraocular eye muscles are intact. Mucous membranes are moist. He is wearing a mask for COVID precautions. MUSCULOSKELETAL: There is tenderness in the lumbosacral region that radiates into his left leg following the L5-S1 to his foot. Pain increases with flexion and extension. He has a normal gait and lower extremity strength is symmetrical. ASSESSMENT: 1. Symptomatic lumbar radiculopathy. 2. Lumbar sacral spondylosis with radiculopathy. 3. Failed lumbar spine surgery. 4. Chronic intractable pain, utilizing scheduled opioid medications. We reviewed the fact that opiate medications are being used to provide analgesia adequate to support activities of daily living, not attempting to achieve a specific pain score on the 0-10 Visual Analog Scale. The current opiate medications are providing sufficient analgesia to allow the patient to participate in activities of daily living. The patient is not exhibiting any aberrant behavior suggestive of drug diversion. The patient is not having any adverse reactions to medications. The patient is not suffering from daytime somnolence or mental acuity changes. The patient is managing opiate-induced constipation with appropriate tanz-siq-frdalud agents and dietary considerations. The patient was counseled on concern for caution with operating a motor vehicle while using opiate medications. A physical exam was performed and the patient's functional status was evaluated. All patients with back pain were advised against the bed rest greater than 4 days and were advised to return to normal activities. Pain score assessment was noted and the treatment plan was reviewed with the patient. All current medications, both prescribed and OTC were reviewed and reconciled on the electronic medical record. Tobacco screening was accomplished and smoking cessation was advised when indicated. BMI was noted and diet/exercise modification was recommended for all patients following outside normal parameters. I reviewed with the patient today their responsibilities to safeguard prescription medications, reviewed their responsibility to utilize medications only as prescribed by the physician. They are to seek and receive pain [address] [address] PAIN MANAGEMENT CONSULTATION Name: DIAMANTE MAYER Room #: REG [facility].#: [id number] Admission: 07/06/21 Attend Phys: Morenita ALECIA Araceli Discharge: Date of : 75 Report #: [id number] medications only from 1 physician group ( [facility]). They are to use 1 pharmacy and keep the clinic informed if they change pharmacies. Their responsibilities include making followup visits in a timely fashion and to avoid abrupt discontinuation of medication usage. Their responsibilities further include bringing their medications (bottles from the pharmacy with residual pills) to the visit for possible confirmation of pill counts and the patient understands it is their responsibility to submit to random drug screens to ensure both that the medications prescribed are present, and that no other controlled substances are present. All prescriptions provided today were generated electronically. PLAN: 1. We discussed treatment options with the patient today. We will continue his buprenorphine at 2 mg tablets, #60. These will be filled in to his local pharmacy for a total of 3 months. 2. We will continue his nabumetone 500 mg twice a day, #60 with 2 additional refills. The patient denies any GI upset or reflex from this medication. 3. We will also continue his baclofen 20 mg tablets #30 with 2 additional refills. The patient takes a half to one from severe muscle spasms. He does not take these on a daily basis. 4. We did collect a random drug screen on this patient today. He will return in 3 months as needed for medication renewals. Time spent with the patient in consultation, reviewing recent imaging and recent studies and clinical notes and physician reports, physical examination and correlation of findings, medical documentation to determine possible treatment options 15 minutes. Time spent in preparation for appointment reviewing prescription monitoring system, reviewing previous records and treatment options, reviewing current medications 6 minutes. Time spent preparing and sending electronic prescriptions with collaborating physician, Dr. Kimani Britt and documentation of visit and plan of care 6 minutes. Total time spent 27 minutes. <ELECTRONICALLY SIGNED> By: Morenita Charles 07/07/21 0848 1145 [id number] Morenita Charles /bob
== END ==
LOC: PAIN 07:13
PROVIDERS: ATTEND Clinical Nurse Specialist Adult Health
DX: M47.26 Other spondylosis with radiculopathy, lumbar region (principal); M96.1 Postlaminectomy syndrome, not elsewhere classified; G89.29 Other chronic pain; M79.662 Pain in left lower leg; Z79.899 Other long term (current) drug therapy

== ENCOUNTER → 2021-10-05 | Outpatient (CLI) | payer OTHER ==
[~2021-10-05] VITALS: Ht 185.4 cm; Wt 116.6 kg
[2021-10-05 09:17] VITALS: BP 163/104
--- NOTE | 2021-10-05 09:23 | NUR ---
[facility] Assessment: 1. History of Osteoarthritis: SPINE History of Rheumatoid Arthritis: NONE 2. Height: 6 ft. 1 in. 185.4 cm. Weight: 257.0 lb. oz. 116.575 kg. Patient's BMI: 33.9 3. Vital Signs: BP: 163/104 Pulse: 82 Resp: 16 Temp: 02 Sat: 98 ECG Mon: 4. Pain Intensity: 5-6 5. Fall Risk: Dizziness: N Needs help standing or walking: N Fallen in the last 3 months: N Fall risk comments: 6. Patient on Blood Thinner: None 7. History of Hypertension: N 8. Opioid Therapy greater than 6 weeks: Y Opiate Contract Signed: 04/13/21 9. Risk Assessment Tool Provided: 1/low 10. Functional Assessment Tool: 11. Recreational Drug Use: Never Drug Type: Tobacco Use: Former Smoker Tobacco Type: Amount or Packs/day: How Many Years: Alcohol Use: Yes Frequency: Weekly Quant: 1-2 wine
== END ==
LOC: PAIN 06:50
PROVIDERS: ATTEND Clinical Nurse Specialist Adult Health
DX: M47.27 Other spondylosis with radiculopathy, lumbosacral region (principal); G89.29 Other chronic pain; M79.18 Myalgia, other site; Z79.899 Other long term (current) drug therapy